=== PATIENT | female | born 1945 | race Caucasian/White ===

== ENCOUNTER 2024-05-17 10:40 | Inpatient (IN) ==
[2024-05-17 11:15] LABS: Basophils # (auto) 0.02 K/uL (0.00-0.20); Basophils % (auto) 0.4 %; Eosinophils # (auto) 0.07 K/uL (0.00-0.50); Eosinophils % (auto) 1.5 %; Hematocrit (blood only) 37.1 % (37.0-47.0); Hemoglobin 13.2 g/dl (12.0-16.0); Immature Granulocytes # (auto) 0.02 K/uL (0.01-0.20); Immature Granulocytes % (auto) 0.4 %; Lymphocytes # (auto) 0.75 K/uL (1.20-3.40); Lymphocytes % (auto) 15.7 %; Mean Corpuscular Hemoglobin 31.5 pg (25.0-34.0); Mean Corpuscular Hgb Conc 35.6 g/dL (32.0-36.0); Mean Corpuscular Volume 88.5 fL (80.0-100.0); Mean Platelet Volume 9.7 fL (9.4-12.4); Monocytes # (auto) 0.43 K/uL (0.11-0.59); Neutrophils # (auto) 3.49 K/uL (1.40-6.50); Platelet Count 202 K/uL (130-400); RDW Coefficient of Variation 13.7 % (11.5-14.5); RDW Standard Deviation 44.1 fL (36.4-46.3); Red Blood Count 4.19 M/uL (4.20-5.40); White Blood Count 4.78 K/ul (4.8-10.8)
--- NOTE | 2024-05-17 11:15 | Emergency Department Note ---
Impression & Plan Acute dyspnea, Acute exacerbation of CHF (congestive heart failure), Elevated brain natriuretic peptide (BNP) level, Pulmonary edema ED Provider Note HISTORY OF PRESENT ILLNESS: Patient is a 78-year-old female presenting with chest tightness and shortness of breath. Patient reports she is from [facility] and is up in the area visiting family. She reports that 10 days ago she had "a heart attack" and had a cardiac catheterization done at her home hospital that was "negative and the arteries were clear." She is not on any aspirin or anticoagulation therapy. She states that she was discharged from the hospital about a week ago and had blood pressure medication adjustments. She states in the last 3 to 4 days since being up in [employer], she has been having increasing shortness of breath. Reports that last night she was unable to sleep secondary to being so short of breath with laying flat. Denies any lower extremity edema. She just complains of chest tightness and feeling like she cannot catch her breath. Denies any DVT or PE history. Denies any cough or fevers. Denies any recent sick contact exposures. She reports has been using her albuterol inhaler with no improvement in her symptoms. Denies any lightheadedness or dizziness. She reports that her chest tightness feels different from when she presented to the outside facility for her heart attack. ROS: as above PHYSICAL EXAM: Constitutional: Patient appears in no acute distress. HENT: Head: Normocephalic and atraumatic. Eyes: EOMI, PERRL Mouth/Throat: Mucous membranes moist. Neck: Trachea midline. Neck supple. Cardiovascular: RRR, No murmurs, rubs or gallops. Intact distal pulses. Pulmonary/Chest: No respiratory distress. Breath sounds equal and clear bilaterally. Patient is conversationally dyspneic. Abdominal: Abdomen soft, no tenderness, rebound or guarding. Musculoskeletal: No edema, tenderness or deformity noted. Skin: Warm and dry. No rash, erythema, pallor or cyanosis Psychiatric: Appropriate mood and affect for situation. Neurological: Alert and keenly responsive. CN II-XII grossly intact, moving all extremities equally and fully. MDM: - Vitals signs stable - History obtained via patient. History as above. - Chronic conditions affecting care: asthma; HTN - Differential diagnoses include, but are not limited to: Congestive heart failure; acute coronary syndrome; COPD/asthma exacerbation; pulmonary edema; pulmonary embolism; pneumonia; pneumothorax; viral syndrome - Order placed for continuous cardiac monitoring. At this time, monitor showed rate of 75 bpm with normal sinus rhythm, per my interpretation. - External medical records reviewed. - EKG interpreted by myself showed normal sinus rhythm. Rate 83 bpm. QT 442. Noted to have T wave inversions in leads II, III and aVF. No previous EKG to compare to. - Laboratory workup interpreted by myself showed leukopenia (WBC 4.78); normal PT/INR; stable electrolytes; normal troponin; normal lipase; elevated BNP (1325) - UA negative for infection - CXR shows some pulmonary vascular congestion, per my interpretation. Radiology notes some subsegmental lateral right lung base opacities concerning for potential pneumonitis versus atelectasis/scarring. - Viral respiratory panel negative - Given patient's recent heart catheterization, CTA chest was obtained. No obvious dissection noted per radiology. However, patient noted to have cardiomegaly with mild interstitial pulmonary edema and trace pleural effusions. Also noted to have esophagitis. - Patient is significantly symptomatic to her heart failure. She is not requiring any oxygen at this point, but she is conversationally dyspneic and unable to lay flat. On review of her discharge summary from her previous hospitalization in [place], she is not discharged on any diuretics. Given 40 mg IV Lasix in the emergency department. Will plan to admit for further cardiac workup, including an echocardiogram. - Discussion was had with caseworker protective services about patient's case and need for admission - Hospitalist, Dr. Baptiste, consulted for admission - [facility] ASSESSMENT AND PLAN: Diagnosis: Acute dyspnea; elevated BNP; pulmonary edema; acute CHF Plan: admit Past Med/Surg History Problem List (Updated 05/17/24 @ 14:17 by Cathleen Antonio MD) Pulmonary edema (Acute) Elevated brain natriuretic peptide (BNP) level (Acute) Acute exacerbation of CHF (congestive heart failure) (Acute) Acute dyspnea (Acute) Abdominal pain (Acute) Diarrhea (Acute) Social History Smoking Status: Never smoker Preferred Language: Chilean Feels Safe at Home: Yes Allergies Allergies Allergy/AdvReac Type Severity Reaction Status Date / Time No Known Allergies Allergy Mild Unverified 05/12/07 16:52 Home Meds Home Medications Medication Instructions Recorded Confirmed ASCORBIC ACID 1,000 mg PO DAILY ##0 05/15/13 BUDESONIDE (INHALATION) (PULMICORT 2 puff inhalation QAM ##0 05/15/13 FLEXHALER) CALCIUM CARBONATE-VITAMIN D 1 tab PO DAILY ##0 05/15/13 (CALCIUM 600+D) CO Q10 1 cap PO DAILY ##0 05/15/13 FLAXSEED (LINSEED) (FLAX SEED OIL) 1 cap PO DAILY ##0 05/15/13 [id number] C-MANGANES 3 tabs PO DAILY ##0 05/15/13 (GLUCOSAMINE MSM COMPLEX) IBUPROFEN (ADVIL) 400 - 600 mg PO PRN Pain or Fever 05/15/13 #0 tabs LOSARTAN POTASSIUM (COZAAR) 100 mg PO DAILY #0 tabs 05/15/13 MONTELUKAST SODIUM (SINGULAIR) 10 mg PO QAM #0 tabs 05/15/13 MULTIPLE VITAMIN (MULTI-VITAMIN) 1 tab PO ##0 05/15/13 OMEGA-3 FATTY ACIDS (FISH OIL) 1 cap PO DAILY ##0 05/15/13 biortin 1 tab PO DAILY ##0 05/15/13 vitamin B12 1 tab PO DAILY ##0 05/15/13 vitamin D3 1 cap PO DAILY ##0 05/15/13 Previous Rx's Medication Instructions Recorded CIPROFLOXACIN HCL (CIPRO) 500 mg PO BID 10 days ##0 05/15/13 Results & Data (ED) Vital Signs Vital Signs - 24 hr 05/17/24 10:45 05/17/24 11:05 05/17/24 11:06 Temperature 36.5 C Temperature Source Temporal Artery Scan Pulse Rate 78 74 Pulse Rate [Apical] Pulse Rhythm Regular Pulse Rhythm [Apical] Pulse Strength [Apical] Respiratory Rate 18 20 Respiratory Effort / Characteristics Respiratory Depth Respiratory Pattern Blood Pressure 109/73 Blood Pressure [Right Arm] Blood Pressure Mean 85 Blood Pressure Mean [Right Arm] Blood Pressure Position [Right Arm] Pulse Oximetry 98 98 97 Oxygen Delivery Method Room Air Room Air Room Air Sepsis Recent Fever Within 48 Hours No Sepsis New/Unexplained Change in Mental Status N/A Sepsis Action Taken by Nursing No Action Required 05/17/24 11:06 05/17/24 12:16 05/17/24 12:27 Temperature 36.8 C Temperature Source Oral Pulse Rate 72 Pulse Rate [Apical] 74 75 Pulse Rhythm Pulse Rhythm [Apical] Regular Pulse Strength [Apical] Normal Respiratory Rate 20 16 Respiratory Effort / Characteristics Non-Labored Spontaneous Respiratory Depth Normal Respiratory Pattern Regular Blood Pressure Blood Pressure [Right Arm] 138/83 154/81 H Blood Pressure Mean Blood Pressure Mean [Right Arm] 101 105 Blood Pressure Position [Right Arm] Lying Pulse Oximetry 97 98 Oxygen Delivery Method Room Air Sepsis Recent Fever Within 48 Hours Sepsis New/Unexplained Change in Mental Status Sepsis Action Taken by Nursing Laboratory Data 05/17/24 10:55 05/17/24 10:55 Lab Results 05/17/24 05/17/24 05/17/24 Range/Units 10:55 11:04 12:14 WBC 4.78 L (4.8-10.8) K/ul RBC 4.19 L (4.20-5.40) M/uL Hgb 13.2 (12.0-16.0) g/dl Hct 37.1 (37.0-47.0) % MCV 88.5 (80.0-100.0) fL MCH 31.5 (25.0-34.0) pg MCHC 35.6 (32.0-36.0) g/dL RDW Std Deviation 44.1 (36.4-46.3) fL RDW Coeff of Braulio 13.7 (11.5-14.5) % Plt Count 202 (130-400) K/uL MPV 9.7 (9.4-12.4) fL Immature Gran % (Auto) 0.4 % Neut % (Auto) 73.0 % Lymph % (Auto) 15.7 % [place] % (Auto) 9.0 % Eos % (Auto) 1.5 % Baso % (Auto) 0.4 % Neut # (Auto) 3.49 (1.40-6.50) K/uL Lymph # (Auto) 0.75 L (1.20-3.40) K/uL [place] # (Auto) 0.43 (0.11-0.59) K/uL Eos # (Auto) 0.07 (0.00-0.50) K/uL Baso # (Auto) 0.02 (0.00-0.20) K/uL Immature Gran # (Auto) 0.02 (0.01-0.20) K/uL PT 11.0 (9.0-12.0) Seconds INR 1.0 (0.9-1.1) Sodium 141 (136-145) mmol/L Potassium 3.7 (3.5-5.1) mmol/L Chloride 107 (98-107) mmol/L Carbon Dioxide 24 (21-32) mmol/L Anion Gap 10 (3-11) BUN 10 (6-23) mg/dl Creatinine 1.01 (0.6-1.2) mg/dl Est Cr Clr Drug Dosing 48.6 ml/min eGFR 57.69 BUN/Creatinine Ratio 9.9 L (10-20) Glucose 121 H (70-99(Fasting)) mg/dl Calcium 9.3 (8.6-10.3) mg/dl Total Bilirubin 1.0 (0.2-1.0) mg/dl AST 18 (13-39) U/L ALT 12 (7-52) U/L Alkaline Phosphatase 49 (34-104) U/L Troponin I High Sens 16.5 H (0-14) pg/ml B-Natriuretic Peptide 1325 H (0-100) pg/ml Total Protein 6.5 (6.0-8.3) gm/dl Albumin 4.1 (3.4-5.0) gm/dl Globulin 2.4 L (2.5-4.0) gm/dl Albumin/Globulin Ratio 1.7 (0.9-2) Lipase 16 (11-82) U/L Urine Color Yellow Urine Appearance Clear (Clear) Urine pH 7.5 (4.5-7.5) Ur Specific [place] 1.006 (1.000-1.030) Urine Protein Negative (Negative) Urine Glucose (UA) Negative (Negative) Urine Ketones Trace H (Negative) Urine Blood Negative (Negative) Urine Nitrite Negative (Negative) Urine Bilirubin Negative (Negative) Urine Urobilinogen Negative (Negative) Ur Leukocyte Esterase Negative (Negative) Adenovirus (PCR) Not Detected (NotDetected) B. pertussis DNA (PCR) Not Detected (NotDetected) B.parapertussis DNA PCR Not Detected (NotDetected) C. pneumoniae DNA (PCR) Not Detected (NotDetected) Coronavirus OC43 (PCR) Not Detected (NotDetected) Coronavirus HKU1 (PCR) Not Detected (NotDetected) Coronavirus 229E (PCR) Not Detected (NotDetected) SARS-CoV-2 (PCR) Not Detected (NotDetected) Coronavirus NL63 (PCR) Not Detected (NotDetected) Human Metapneumovir PCR Not Detected (NotDetected) Influenza Type A (PCR) Not Detected (NotDetected) Influenza Type B (PCR) Not Detected (NotDetected) M. pneumoniae (PCR) Not Detected (NotDetected) Parainfluenza 1 (PCR) Not Detected (NotDetected) Parainfluenza 2 (PCR) Not Detected (NotDetected) Parainfluenza 3 (PCR) Not Detected (NotDetected) Parainfluenza 4 (PCR) Not Detected (NotDetected) RSV (PCR) Not Detected (NotDetected) Entero/Rhino (PCR) Not Detected (NotDetected) Administered Medications Discontinued Medications Furosemide (Furosemide 40 Mg/4 Ml Vial) 40 mg IV ONE ONE Stop: 05/17/24 14:00 Last Admin: 05/17/24 14:16 Dose: 40 mg Documented By: SRIRAM Ioversol (Optiray 320 125ml) 119 ml IV ONCE ONE Stop: 05/17/24 13:07 Last Admin: 05/17/24 13:06 Dose: 119 ml Documented By: CHYNA Imaging Data Radiologist's Impression: Chest X-Ray 05/17/24 10:50 XR chest 1V portable HISTORY: 78 years-old Female Chest pain, nonspecific COMPARISON: 05/15/2013 TECHNIQUE: AP view the chest FINDINGS: Cardiac silhouette is upper limits of normal in size. No pneumothorax, pleural effusion, or overt pulmonary edema. There is mild subsegmental lateral right lung base opacities. Surgical clips project over the right axilla. Bones appear grossly intact. IMPRESSION: Mild subsegmental lateral right lung base opacities may represent a mild pneumonitis versus atelectasis/scarring. ACT 112: Negative or not required by law. The above report was generated using voice recognition software. It may contain grammatical, syntax or spelling errors. Electronically signed by: Orville Alejandro M.D. 05/17/2024 11:18 AM Chest CTA 05/17/24 12:48 CT angio chest dissec wo/w con CT DOSE: 1337.74 mGy.cm HISTORY: 78 years-old Female with shortness of breath; recent cath; headache. Acute shortness of breath with recent cardiac catheterization TECHNIQUE: Multiple CTA images of the chest were obtained before and after the intravenous administration of 119 ml Optiray. Coronal and sagittal MIPS were obtained from the axial data set and were submitted for review. All measurements were obtained according to NASCET criteria. A dose lowering technique was utilized adhering to the principles of ALARA. COMPARISON: Chest radiograph of same day. FINDINGS: CTA: Mild cardiomegaly without pericardial effusion. No thoracic aortic aneurysm, dissection or intramural hematoma. Great vessels appear intact. There is descending thoracic aortic tortuosity. Mild atherosclerosis. No pulmonary emboli identified. CT CHEST: Unremarkable thyroid. There are a few borderline enlarged mediastinal lymph nodes measuring up to 10 mm. There is circumferential wall thickening involving the mid to distal esophagus with adjacent periesophageal inflammatory stranding. Small hiatal hernia. Possible postoperative changes of the proximal stomach. Trace pleural effusions. No pneumothorax. Mild intralobular septal thickening with bibasilar subsegmental atelectasis. No definitively suspicious pulmonary nodules or masses. Central airways appear patent. Probable cyst of the right hepatic lobe on image 52 series 5 measuring 1.4 cm. Biopsied and partially calcified lesions of the right breast with right axillary surgical clips. Probable small seroma associated with the lesion on image 139 measuring 8 mm. No acute fracture or suspicious bone lesion. IMPRESSION: 1. Cardiomegaly with mild interstitial pulmonary edema, trace pleural effusions with mild subsegmental bibasilar atelectasis. 2. No acute aortic pathology or pulmonary embolus. 3. Mid to distal esophageal wall thickening with adjacent periesophageal inflammation/trace fluid suggestive of esophagitis. Findings could be correlated with endoscopy. 4. Borderline enlarged mediastinal lymph nodes, likely reactive. ACT 112: Negative or not required by law. The above report was generated using voice recognition software. It may contain grammatical, syntax or spelling errors. Electronically signed by: Orville Alejandro M.D. 05/17/2024 1:56 PM Discharge Plan Visit Data Chief Complaint: Cardiac Assessment Stated Complaint: CHEST TIGHT, SOB, RECENT HEART ATTACK ED Provider: Cathleen Antonio Discharge Problem: Acute dyspnea, Acute exacerbation of CHF (congestive heart failure), Elevated brain natriuretic peptide (BNP) level, Pulmonary edema Forms Stand Alone Forms: My [facility] Prescriptions Prescriptions: No Action ASCORBIC ACID 1,000 MG tablet 1,000 mg PO DAILY Qty: 0 BUDESONIDE (INHALATION) (PULMICORT FLEXHALER) 180 MCG/ACT inhaler 2 puff Inhalation QAM Qty: 0 CALCIUM CARBONATE-VITAMIN D (CALCIUM 600+D) 1 TAB tablet 1 tab PO DAILY Qty: 0 CO Q10 1 cap PO DAILY Qty: 0 FLAXSEED (LINSEED) (FLAX SEED OIL) 1 CAP capsule 1 cap PO DAILY Qty: 0 [id number] C-MANGANES (GLUCOSAMINE MSM COMPLEX) 1 TAB tablet 3 tabs PO DAILY Qty: 0 IBUPROFEN (ADVIL) 200 MG tablet 400 - 600 mg PO PRN (Reason: Pain or Fever) Qty: 0 LOSARTAN POTASSIUM (COZAAR) 100 MG tablet 100 mg PO DAILY Qty: 0 MONTELUKAST SODIUM (SINGULAIR) 10 MG tablet 10 mg PO QAM Qty: 0 MULTIPLE VITAMIN (MULTI-VITAMIN) 1 TAB tablet 1 tab PO Qty: 0 OMEGA-3 FATTY ACIDS (FISH OIL) 1 CAP capsule 1 cap PO DAILY Qty: 0 biortin 1 tab PO DAILY Qty: 0 vitamin B12 1 tab PO DAILY Qty: 0 vitamin D3 1 cap PO DAILY Qty: 0 CIPROFLOXACIN HCL (CIPRO) 500 MG tablet 500 mg PO BID 10 Days Qty: 0 0RF Referrals Referrals: PCP,NO [Physician] -
--- NOTE | 2024-05-17 11:19 | XRay Report ---
XR chest 1V portable HISTORY: 78 years-old Female Chest pain, nonspecific COMPARISON: 05/15/2013 TECHNIQUE: AP view the chest FINDINGS: Cardiac silhouette is upper limits of normal in size. No pneumothorax, pleural effusion, or overt pul monary edema. There is mild subsegmental lateral right lung base opacities. Surgical clips project ov er the right axilla. Bones appear grossly intact. IMPRESSION: Mild subsegmental lateral right lung base opacities may represent a mild pneumonitis vers us atelectasis/scarring. ACT 112: Negative or not required by law. The above report was generated using voice recognition software. It may contain grammatical, syntax o r spelling errors. Electronically signed by: Orville Alejandro M.D. 05/17/2024 11:18 AM
[2024-05-17 11:29] LABS: Albumin Globulin Ratio 1.7 (0.9-2); Albumin Level 4.1 gm/dl (3.4-5.0); BUN Creatinine Ratio 9.9 (10-20); Calcium 9.3 mg/dl (8.6-10.3); Creatinine Clr Calc Pharmacy 48.6 ml/min; Globulin 2.4 gm/dl (2.5-4.0); Potassium 3.7 mmol/L (3.5-5.1); Total Protein 6.5 gm/dl (6.0-8.3)
[2024-05-17 11:35] LABS: Troponin I High Sensitivity 16.5 pg/ml (0-14)
[2024-05-17 12:10] LABS: Adenovirus PCR Not Detected (NotDetected); Bordetella parapertussis PCR Not Detected (NotDetected); Bordetella pertussis PCR Not Detected (NotDetected); Chlamydia pneumoniae PCR Not Detected (NotDetected); Coronavirus 229E PCR Not Detected (NotDetected); Coronavirus CoV-2 (COVID19)PCR Not Detected (NotDetected); Coronavirus HKU1 PCR Not Detected (NotDetected); Coronavirus NL63 PCR Not Detected (NotDetected); Coronavirus OC43PCR Not Detected (NotDetected); Human Metapneumovirus PCR Not Detected (NotDetected); Influenza A PCR Not Detected (NotDetected); Influenza B PCR Not Detected (NotDetected); Mycoplasma pneumoniae PCR Not Detected (NotDetected); Parainfluenza Virus 1 PCR Not Detected (NotDetected); Parainfluenza Virus 2 PCR Not Detected (NotDetected); Parainfluenza Virus 3 PCR Not Detected (NotDetected); Parainfluenza Virus 4 PCR Not Detected (NotDetected); Respiratory Syncytial VirusPCR Not Detected (NotDetected); Rhinovirus/Enterovirus PCR Not Detected (NotDetected)
[2024-05-17 12:47] LABS: Appearance Urine Clear (Clear); Bilirubin Urine Negative (Negative); Blood Urine Negative (Negative); Color Urine Yellow; Glucose Urine UA Negative (Negative); Ketones Urine Trace (Negative); Leukocyte Esterase Urine Negative (Negative); Nitrite Urine Negative (Negative); Protein Urine Negative (Negative); Specific Gravity Urine 1.006 (1.000-1.030); Urobilinogen Urine Negative (Negative); pH Urine 7.5 (4.5-7.5)
--- NOTE | 2024-05-17 12:48 | Electrocardiogram Report ---
Test Reason : Blood Pressure : */* mmHG Vent. Rate : 83 BPM Atrial Rate : 83 BPM P-R Int : 168 ms QRS Dur : 94 ms QT Int : 442 ms P-R-T Axes : 56 -67 257 degrees QTcB Int : 519 ms Normal sinus rhythm Left axis deviation Marked T-wave abnormality, consider inferolateral ischemia Prolonged QT Abnormal ECG No previous ECGs available Confirmed by Tone Conte ([id number]) on 05/17/2024 12:48:09 PM Referred By: REFERRED SELF Confirmed By: Tone Conte
[2024-05-17] MEDS: OPTIRAY 320 125ml IV ONE (13:06)
--- NOTE | 2024-05-17 13:58 | CT Scan Report ---
CT angio chest dissec wo/w con CT DOSE: 1337.74 mGy.cm HISTORY: 78 years-old Female with shortness of breath; recent cath; headache. Acute shortness of br eath with recent cardiac catheterization TECHNIQUE: Multiple CTA images of the chest were obtained before and after the intravenous administra tion of 119 ml Optiray. Coronal and sagittal MIPS were obtained from the axial data set and were sub mitted for review. All measurements were obtained according to NASCET criteria. A dose lowering tech nique was utilized adhering to the principles of ALARA. COMPARISON: Chest radiograph of same day. FINDINGS: CTA: Mild cardiomegaly without pericardial effusion. No thoracic aortic aneurysm, dissection or intramural hematoma. Great vessels appear intact. There is descending thoracic aortic tortuosity. Mild atherosc lerosis. No pulmonary emboli identified. CT CHEST: Unremarkable thyroid. There are a few borderline enlarged mediastinal lymph nodes measuring up to 10 mm. There is circumferential wall thickening involving the mid to distal esophagus with adjacent dilma esophageal inflammatory stranding. Small hiatal hernia. Possible postoperative changes of the proxima l stomach. Trace pleural effusions. No pneumothorax. Mild intralobular septal thickening with bibasilar subsegme ntal atelectasis. No definitively suspicious pulmonary nodules or masses. Central airways appear kaur nt. Probable cyst of the right hepatic lobe on image 52 series 5 measuring 1.4 cm. Biopsied and parti ally calcified lesions of the right breast with right axillary surgical clips. Probable small seroma associated with the lesion on image 139 measuring 8 mm. No acute fracture or suspicious bone lesion. IMPRESSION: 1. Cardiomegaly with mild interstitial pulmonary edema, trace pleural effusions with mild subsegmenta l bibasilar atelectasis. 2. No acute aortic pathology or pulmonary embolus. 3. Mid to distal esophageal wall thickening with adjacent periesophageal inflammation/trace fluid sug gestive of esophagitis. Findings could be correlated with endoscopy. 4. Borderline enlarged mediastinal lymph nodes, likely reactive. ACT 112: Negative or not required by law. The above report was generated using voice recognition software. It may contain grammatical, syntax o r spelling errors. Electronically signed by: Orville Alejandro M.D. 05/17/2024 1:56 PM
[2024-05-17] MEDS: FUROSEMIDE 40 MG/4 ML VIAL IV ONE (14:16)
--- NOTE | 2024-05-17 15:23 | History & Physical Report ---
Date of Service May 17, 2024 Assessment & Plan (1) Pulmonary edema: (2) Takotsubo cardiomyopathy: Plan: Patient is a 78 year old female with recent diagnosis of Takatsubo Cardiomyopathy with NSTEMI, history of Asthma, Pancreatic insufficiency, Breast Cancer s/p radiation, other problems noted below presenting with shortness of breath x 3-4 days. PULMONARY EDEMA TAKOTSUBO CARDIOMYOPATHY, RECENT DIAGNOSIS recently discharged from [facility] in [place] last May 09, 2024 after presenting with chest tightness and was diagnosed with Takatsubo Cardiomyopathy and NSTEMI. She was given Lasix and was discharged on Metoprolol XL and Valsartan. Cardiac Cath: negative for coronary artery disease as per patient presenting with shortness of breath with exertion, while supine no chest pain BNP elevated 1,300s Trop 16 EKG T wave depressions inferior and anteroseptal leads repeat Trop pending echocardiogram ordered continue Lasix 40mg IV daily continue recently prescribed Metoprolol XL 25mg daily, Valsartan 40mg po daily obtain records from [facility] including ekg, echo, cardiology notes Cardiology service consulted PROLONGED QTC QTc 519 repeat EKG in AM ASTHMA not in exacerbation continue Arnuity Ellipta, Montelukast PANCREATIC INSUFFICIENCY continue Zenpep with meals MIGRAINE continue PRN Sumatriptan, Celebrex ALCOHOL USE patient reports having 2-3 drinks of wine or cocktail/day HISTORY OF BREATH CANCER S/P RADIATION 2018 DVT PROPHYLAXIS SCDs for now FULL CODE PER PATIENT DISPOSITION lives at home in [place], visiting [place] currently History of Present Illness Chief Complaint: shortness of breath x 3-4 days Primary Care Provider: MARZENA WINTER Patient is a 78 year old female with recent diagnosis of Takotsubo Cardiomyopathy with NSTEMI, history of Asthma, Pancreatic insufficiency, Breast Cancer s/p radiation, other problems noted below presenting with shortness of breath x 3-4 days. Patient is visiting [place] from [place]. She was recently discharged from [facility] in [place] last May 09, 2024 after presenting with chest tightness and was diagnosed with Takatsubo Cardiomyopathy and NSTEMI. She was given Lasix and was discharged on Metoprolol XL and Valsartan. Cardiac Cath: negative for coronary artery disease as per patient For the past 3-4 days, patient reports progressive shortness of breath even with mild exertion and with laying flat. At the ER, patient received with essentially stable vital signs, >90% on room air. BNP elevated at [address] chest: no acute PE 1. Cardiomegaly with mild interstitial pulmonary edema, trace pleural effusions with mild subsegmental bibasilar atelectasis. 2. No acute aortic pathology or pulmonary embolus. 3. Mid to distal esophageal wall thickening with adjacent periesophageal inflammation/trace fluid suggestive of esophagitis. Findings could be correlated with endoscopy. 4. Borderline enlarged mediastinal lymph nodes, likely reactive. Patient was given Lasix 40mg IV at the ER. On exam, patient seen resting in bed, sitting up, not in distress, speaks in sentences with no effort. She still has some shortness of breath, occasional dry cough, but denies chest pain, palpitations, dizziness or any other symptoms. Allergies Allergy/AdvReac Type Severity Reaction Status Date / Time animal dander Allergy Severe Causes Unverified 05/17/24 14:33 asthma attack amlodipine Allergy Unknown "Just Unverified 05/17/24 14:33 doesn't agree with me." diltiazem Allergy Unknown "Just Unverified 05/17/24 14:33 doesn't agree with me." fluconazole Allergy Unknown "Just Unverified 05/17/24 14:33 doesn't agree with me." gabapentin Allergy Unknown "Just Unverified 05/17/24 14:33 doesn't agree with me." nebivolol [From Bystolic] Allergy Unknown "Just Unverified 05/17/24 14:33 doesn't agree with me." oxycodone Allergy Unknown "Just Unverified 05/17/24 14:33 doesn't agree with me." tramadol [From Ultram] Allergy Unknown "Just Unverified 05/17/24 14:33 doesn't agree with me." Home Medications Medication Instructions Recorded Confirmed Type ascorbic acid (vitamin C) 1,000 mg 1,000 mg PO QDL ##0 05/15/13 05/17/24 History tablet biotin 1,000 mcg chewable tablet 1,000 mcg PO QDL ##0 05/15/13 05/17/24 History calcium 600 mg (as 1 tab PO QDL ##0 05/15/13 05/17/24 History carbonate)-vitamin D3 10 mcg (400 unit) tablet (Calcium 600 + D(3)) cholecalciferol (vitamin D3) 25 25 mcg PO QDL ##0 05/15/13 05/17/24 History mcg (1,000 unit) tablet (Vitamin D3) coQ10 (ubiquinol) 100 mg capsule 100 mg PO QDL ##0 05/15/13 05/17/24 History cyanocobalamin (vitamin B-12) 1,000 mcg PO QDL ##0 05/15/13 05/17/24 History 1,000 mcg tablet (Vitamin B-12) flaxseed oil 1,000 mg capsule 1,000 mg PO QDL ##0 05/15/13 05/17/24 History qypooixjlwl-igj-emcyfigiy-vitC 3 tabs PO QDL ##0 05/15/13 05/17/24 History capsule (Glucosamine Complex-MSM capsule) ibuprofen 200 mg tablet 400 - 600 mg PO DAILY PRN Pain #0 05/15/13 05/17/24 History tabs multivitamin 1 tab PO QDL ##0 05/15/13 05/17/24 History omega 0-dwg-ywz-fish oil 900 1 cap PO QDL ##0 05/15/13 05/17/24 History mg-1,400 mg capsule,delayed release atorvastatin 10 mg tablet 10 mg PO QAM 05/17/24 05/17/24 History fluticasone furoate 50 1 inh inhalation QAM 05/17/24 05/17/24 History mcg/actuation blister powder for inhalation (Arnuity Ellipta) hydroxyzine HCl 25 mg tablet 25 mg PO BID 05/17/24 05/17/24 History uavlny-bzthdbnf-ivvibpo 1 - 3 cap PO UD 05/17/24 05/17/24 History 40,000-126,000-168,000 unit capsule, delay rel (Zenpep) metoprolol succinate 25 mg 25 mg PO QPM 05/17/24 05/17/24 History tablet,extended release 24 hr montelukast 10 mg tablet 10 mg PO QAM 05/17/24 05/17/24 History sumatriptan succinate 50 mg tablet 50 mg PO DAILY PRN Migraine 05/17/24 05/17/24 History Headache trazodone 50 mg tablet 50 mg PO HS 05/17/24 05/17/24 History valsartan 40 mg tablet 40 mg PO QPM 05/17/24 05/17/24 History Past Med/Surg History Problem List (Updated 05/17/24 @ 15:06 by Torito Baptiste MD) Takotsubo cardiomyopathy Pulmonary edema (Acute) Elevated brain natriuretic peptide (BNP) level (Acute) Acute exacerbation of CHF (congestive heart failure) (Acute) Acute dyspnea (Acute) Abdominal pain (Acute) Diarrhea (Acute) Social History Smoking Status: Former smoker Second Hand Exposure: No; Do You Dip or Chew Tobacco: No; Tobacco Cessation Education Requested by Patient: No Hx Alcohol Use: Yes Alcohol type: wine Hx Substance Use: No Preferred Language: Cook Islander Communication Ability: Effective Seam Feller Required: No Beliefs That Will Affect Care: None Current Living Situation: Alone Other Information That Helps Us Care for You: No Feels Safe at Home: Yes Safety Concerns: Feels Safe At This Time Assistive Devices: None Review of Systems Review of Systems: all noted and negative except for above Physical Exam Physical Exam: General- oriented x 3, not in distress, speaks in sentences with no effort or accessory muscle use Head- atraumatic Eyes- PERRL, EOMI, anicteric ENT- oropharynx clear Neck- supple, (+) JVD, no adenopathy, no thyromegaly; carotids +2/2, no bruits appreciated Lungs- mild rales at the bases no wheezing Heart- normal rate, regular rhythm; no murmur, no gallop, no rub appreciated Abdomen- normal bowel sounds, nondistended, soft, nontender, no masses or hepatosplenomegaly Extremities- trace pretibial edema, no calf tenderness; peripheral pulses intact Neuro- alert, oriented x 3; CN 2-12 grossly intact; motor 5/5 bilaterally;sensation 100% on all extremities; no other gross focal neurologic deficits Skin- warm & dry Results & Data Results & Data Vital Signs (Past 12 Hours) Vital Signs Temp Pulse Pulse Resp BP BP Pulse Ox 05/17/24 14:33 36.7 C 88 20 158/88 H 98 05/17/24 12:27 75 16 154/81 H 98 05/17/24 12:16 72 05/17/24 11:06 36.8 C 74 20 138/83 97 05/17/24 11:06 97 05/17/24 11:05 74 20 98 05/17/24 10:45 36.5 C 78 18 109/73 98 O2 Del Method 05/17/24 14:33 Room Air 05/17/24 12:27 05/17/24 12:16 05/17/24 11:06 Room Air 05/17/24 11:06 Room Air 05/17/24 11:05 Room Air 05/17/24 10:45 Room Air all noted and reviewed including below Code Status & VTE Plan VTE Prophylaxis Plan VTE Prophylaxis will be ordered: Yes
[2024-05-17] MEDS ORDERED: PANCREAZE (LIPASE 16,800U) CAP PO PRN (15:36)
[2024-05-17] MEDS ORDERED: ACETAMINOPHEN 325 MG TAB PO PRN (16:26)
[2024-05-17] MEDS: PANCREAZE (LIPASE 16,800U) CAP PO SCH (16:51)
[2024-05-17 16:59] LABS: Magnesium 1.7 mg/dl (1.7-2.4)
[2024-05-17 17:00] LABS: Troponin I High Sensitivity 29.7 pg/ml (0-14)
[2024-05-17] MEDS: NITROGLYCERIN SL 0.4 MG/TAB TAB SL PRN (20:40)
[2024-05-17] MEDS: FAMOTIDINE 20MG IV PUSH 20 MG/5 ML SYR IV STA (20:42)
[2024-05-17] MEDS: MAGNESIUM SULFATE / D5W 1 GM/100 ML BAG IV SCH (20:51)
[2024-05-17] MEDS: ASPIRIN 81 MG CHEW PO STA (20:58)
[2024-05-17] MEDS: MoRPHine SULFATE 2 MG/ML CARP IV STA (20:58)
[2024-05-17] MEDS: VALSARTAN 80 MG TAB PO SCH (21:50)
[2024-05-17] MEDS: hydrOXYzine HCl 25 MG TAB PO SCH (21:53)
[2024-05-17] MEDS: METOPROLOL SUCC 25MG EXT REL TAB PO SCH (21:54)
[2024-05-17] MEDS: traZODone HCL 50 MG TAB PO SCH (21:55)
[2024-05-18 07:20] LABS: Basophils # (auto) 0.03 K/uL (0.00-0.20); Basophils % (auto) 0.8 %; Eosinophils # (auto) 0.16 K/uL (0.00-0.50); Eosinophils % (auto) 4.1 %; Hemoglobin 12.3 g/dl (12.0-16.0); Immature Granulocytes # (auto) 0.02 K/uL (0.01-0.20); Immature Granulocytes % (auto) 0.5 %; Lymphocytes # (auto) 0.85 K/uL (1.20-3.40); Mean Corpuscular Hemoglobin 30.8 pg (25.0-34.0); Mean Corpuscular Hgb Conc 34.2 g/dL (32.0-36.0); Mean Corpuscular Volume 90.2 fL (80.0-100.0); Mean Platelet Volume 9.9 fL (9.4-12.4); Monocytes # (auto) 0.51 K/uL (0.11-0.59); Monocytes % (auto) 13.2 %; Neutrophils % (auto) 59.4 %; Platelet Count 181 K/uL (130-400); RDW Coefficient of Variation 13.8 % (11.5-14.5); RDW Standard Deviation 45.3 fL (36.4-46.3); Red Blood Count 3.99 M/uL (4.20-5.40); White Blood Count 3.87 K/ul (4.8-10.8)
[2024-05-18 07:38] LABS: Albumin Globulin Ratio 1.5 (0.9-2); Albumin Level 3.5 gm/dl (3.4-5.0); BUN Creatinine Ratio 11.7 (10-20); Bilirubin,Total 0.8 mg/dl (0.2-1.0); Calcium 8.7 mg/dl (8.6-10.3); Creatinine Clr Calc Pharmacy 44.3 ml/min; Globulin 2.4 gm/dl (2.5-4.0); Magnesium 2.3 mg/dl (1.7-2.4); Potassium 3.5 mmol/L (3.5-5.1); Total Protein 5.9 gm/dl (6.0-8.3)
[2024-05-18 07:45] LABS: Troponin I High Sensitivity 17.9 pg/ml (0-14)
[2024-05-18] MEDS: ATORVASTATIN 10 MG TAB PO SCH (08:24)
[2024-05-18] MEDS: FLUTICASONE FUROATE 100MCG 14 PUFFS/INHALER INH SCH (08:24)
[2024-05-18] MEDS: FAMOTIDINE 20MG IV PUSH 20 MG/5 ML SYR IV SCH (08:24)
[2024-05-18] MEDS: FUROSEMIDE 40 MG/4 ML VIAL IV SCH (08:24)
[2024-05-18] MEDS: MONTELUKAST SODIUM 10 MG TABLET PO SCH (08:24)
--- NOTE | 2024-05-18 10:13 | Cardiology Consultation ---
Date of Consultation May 18, 2024 Assessment & Plan (1) Heart failure, systolic, with acute decompensation: (2) Takotsubo cardiomyopathy: (3) Pulmonary edema: (4) Elevated brain natriuretic peptide (BNP) level: (5) Acute exacerbation of CHF (congestive heart failure): (6) Chronic alcohol use: (7) HTN (hypertension): Plan 78-year-old female presenting to [facility] on May 17, 2024 with signs and symptoms of acute decompensated systolic congestive heart failure following recent hospitalization in [place] with stress induced cardiomyopathy, Takotsubo cardiomyopathy. Diagnostic cardiac catheterization in [place] reportedly with normal coronary arteries (no records available for review). Degree of initial systolic dysfunction unknown though resting echocardiography this admission reveals moderate reduction in LV systolic function, EF 40 to 45%, findings consistent with apical ballooning cardiomyopathy history. Symptoms on presentation, acute decompensated systolic heart failure, HFrEF, have significantly improved following administration of two dose of 40 mg IV furosemide. Recommendations: Continue metoprolol succinate 25 mg/day Continue valsartan 40 mg/day Add oral furosemide 20 mg/day Add spironolactone, 12.5 mg/day Avoid QTc prolonging medications Aspiration evaluation/precautions Outpatient follow-up with cardiology and family practitioner in [place] Supervising Physician Co-Signing Physician Notes Patient seen and personally examined. Care and management discussed in detail with advanced provider and recommendations as above personally endorsed. 78-year-old female with recent hospital discharge following presentation with severe throat and chest pain with findings consistent with a apical ballooning cardiomyopathy per report diagnostic coronary angiography free of disease. Patient presents now with signs and symptoms of mildly decompensated systolic heart failure. Echocardiogram consistent with referral diagnosis. Substanti ally improved after initial diuresis. Recommendations as noted above History of Present Illness Reason for Consultation: Volume overload, Takotsubo cardiomyopathy Requesting Physician: [facility], Dr. Baptiste Attending Physician: [facility], Dr. Awilda Belcher MD History of Present Illness Josefina Carrero is a very pleasant 78-year-old female who was in her usual state of health until the evening of May 06, 2024 at which time, while eating dinner, she felt a discomfort in her neck as though the food did not go down correctly. She notes taking sips of water to try to ease things along, thereafter developing pain across the upper chest associated with shortness of breath. She notes laying down on the couch for a while with eventual improvement. Shortly after 8 PM she went to the bathroom and felt okay however in the middle the night she woke with shortness of breath and recurrent upper chest discomfort. She notes driving herself to the ER where she underwent a thorough evaluation and was told that she had a "stress related heart incident." She describes undergoing diagnostic cardiac catheterization via right radial artery approach, without coronary artery disease observed. She is unaware of resting echocardiography findings at that time, unaware of the degree of LV systolic dysfunction. Patient discharge from [facility] on May 09, 2024 on metoprolol succinate 25 mg/day and valsartan 40 mg/day. She was not discharged on diuretic therapy. Follow-up appointments are scheduled with her family provider and cardiology on May 21 and . The patient is in [facility] visiting family/friends for the holiday's. She notes family ties to this community x 60 to 70 years. For the past 4 days the patient has experienced recurrent tightness, squeezing, and shortness of breath along with orthopnea, intermittent PND, and mild lower extremity peripheral edema. Patient presented to the [facility] ER May 17, 2024 for further evaluation and treatment. Chest x-ray was interpreted by the radiologist as revealing mild subsegmental lateral right lung base opacities. Chest CTA revealed cardiomegaly with mild interstitial pulmonary edema, trace pleural effusions with mild subsegmental bibasilar atelectasis. CT negative for PE. Mid to distal esophageal wall thickening observed with adjacent periesophageal inflammation/trace fluid suggestive of esophagitis and a small hiatal hernia. Mediastinal lymph nodes were borderline enlarged, felt to be reactive. Patient received 40 mg IV furosemide in the ER and a second dose of 40 mg IV furosemide approximately 1 hour prior to my evaluation this morning with resultant significant improvement in presenting symptoms. She described at least 90% improvement in presenting symptoms. Past Medical and Surgical History Stress mediated cardiomyopathy, Takotsubo cardiomyopathy, April 2024 Hypertension Asthma Chronic pancreatic insufficiency Right breast cancer x 2, status post radiation, lumpectomy x 2 Insomnia, on Lunesta Tonsillectomy Tubal ligation Family History: Positive for CAD and CHF in father. Mother without cardiac issues. Brother with CAD. Social History: Remote tobacco user, in college. Alcohol: 2 healthy glasses of wine per day, and an occasional cocktail. No illegal drug use. Lives in [place], [place]. Retired in 2013, computer company executive, desk job. [employer] graduate. Allergies Allergy/AdvReac Type Severity Reaction Status Date / Time animal dander Allergy Severe Causes Unverified 05/17/24 14:33 asthma attack amlodipine Allergy Unknown "Just Unverified 05/17/24 14:33 doesn't agree with me." diltiazem Allergy Unknown "Just Unverified 05/17/24 14:33 doesn't agree with me." fluconazole Allergy Unknown "Just Unverified 05/17/24 14:33 doesn't agree with me." gabapentin Allergy Unknown "Just Unverified 05/17/24 14:33 doesn't agree with me." nebivolol [From Bystolic] Allergy Unknown "Just Unverified 05/17/24 14:33 doesn't agree with me." oxycodone Allergy Unknown "Just Unverified 05/17/24 14:33 doesn't agree with me." tramadol [From Ultram] Allergy Unknown "Just Unverified 05/17/24 14:33 doesn't agree with me." Home Medications Medication Instructions Recorded Confirmed Type ascorbic acid (vitamin C) 1,000 mg 1,000 mg PO QDL ##0 05/15/13 05/17/24 History tablet biotin 1,000 mcg chewable tablet 1,000 mcg PO QDL ##0 05/15/13 05/17/24 History calcium 600 mg (as 1 tab PO QDL ##0 05/15/13 05/17/24 History carbonate)-vitamin D3 10 mcg (400 unit) tablet (Calcium 600 + D(3)) cholecalciferol (vitamin D3) 25 25 mcg PO QDL ##0 05/15/13 05/17/24 History mcg (1,000 unit) tablet (Vitamin D3) coQ10 (ubiquinol) 100 mg capsule 100 mg PO QDL ##0 05/15/13 05/17/24 History cyanocobalamin (vitamin B-12) 1,000 mcg PO QDL ##0 05/15/13 05/17/24 History 1,000 mcg tablet (Vitamin B-12) flaxseed oil 1,000 mg capsule 1,000 mg PO QDL ##0 05/15/13 05/17/24 History cmzzryywggb-ymh-ztqhmsocj-vitC 3 tabs PO QDL ##0 05/15/13 05/17/24 History capsule (Glucosamine Complex-MSM capsule) ibuprofen 200 mg tablet 400 - 600 mg PO DAILY PRN Pain #0 05/15/13 05/17/24 History tabs multivitamin 1 tab PO QDL ##0 05/15/13 05/17/24 History omega 9-ylw-jzr-fish oil 900 1 cap PO QDL ##0 05/15/13 05/17/24 History mg-1,400 mg capsule,delayed release atorvastatin 10 mg tablet 10 mg PO QAM 05/17/24 05/17/24 History fluticasone furoate 50 1 inh inhalation QAM 05/17/24 05/17/24 History mcg/actuation blister powder for inhalation (Arnuity Ellipta) hydroxyzine HCl 25 mg tablet 25 mg PO BID 05/17/24 05/17/24 History aqhero-qpxenxdq-okbjimm 1 - 3 cap PO UD 05/17/24 05/17/24 History 40,000-126,000-168,000 unit capsule, delay rel (Zenpep) metoprolol succinate 25 mg 25 mg PO QPM 05/17/24 05/17/24 History tablet,extended release 24 hr montelukast 10 mg tablet 10 mg PO QAM 05/17/24 05/17/24 History sumatriptan succinate 50 mg tablet 50 mg PO DAILY PRN Migraine 05/17/24 05/17/24 History Headache trazodone 50 mg tablet 50 mg PO HS 05/17/24 05/17/24 History valsartan 40 mg tablet 40 mg PO QPM 05/17/24 05/17/24 History Patient History Social History Smoking Status: Former smoker Second Hand Exposure: No; Do You Dip or Chew Tobacco: No; Tobacco Cessation Education Requested by Patient: No Hx Alcohol Use: Yes Alcohol type: wine Hx Substance Use: No Preferred Language: Yakut Communication Ability: Effective Senior Network Engineer Required: No Beliefs That Will Affect Care: None Current Living Situation: Alone Other Information That Helps Us Care for You: No Feels Safe at Home: Yes Safety Concerns: Feels Safe At This Time Assistive Devices: None Review of Systems Review of Systems: Complete Review of Systems: Constitutional: No fevers, chills, or night sweats. Notes taking multiple supplements. HEENT: No history of amaurosis fugax. Pulmonary: Asthma. No history of sleep apnea. No history of PE. Cardiac: See above. GI/Abd: Dysphagia. GERD. Constipation requiring laxative use. No melena or hematochezia. Vascular: No history of carotid artery disease, AAA, or lower extremity claudication/PAD. Hematologic: No coagulation disorder, anemia, or abnormal bleeding. Musculoskeletal: Arthritis. Skin: No rash. Neurologic: No history of TIA/CVA. No history of seizure disorder. Female : Breast cancer. Endocrine: Denies diabetes mellitus. Complete Review of Systems is as stated above, negative, or noncontributory Physical Exam Physical Exam: General: A&Ox3. NAD. HENT: Normocephalic. Atraumatic. Eyes: PER. Conjunctiva pink, sclera clear. Neck: JVD. Heart: RRR. Systolic murmur at the lower left sternal border. PMI is nondisplaced. Lungs: Clear to auscultation. Abdomen: +BS. Soft. Nontender. No masses or organomegaly. Extremities: No significant edema. No clubbing. No cyanosis Limited neurological examination is without focal deficits. Pulses: Right radial access site looks good. Posterior tibial=2/4. Results & Data Vital Signs (Past 12 Hours) Vital Signs Temp Pulse Resp BP Pulse Ox O2 Del Method 05/18/24 09:41 Room Air 05/18/24 07:26 36.6 C 59 L 17 112/66 97 Room Air 05/18/24 03:47 36.6 C 53 L 18 100/64 95 Room Air 05/17/24 22:53 36.6 C 63 18 96/60 L 95 Room Air Laboratory Results Cardiac Enzymes 05/17/24 05/17/24 05/17/24 Range/Units 10:55 16:17 20:15 AST 18 (13-39) U/L Troponin I High Sens 16.5 H 29.7 H D 38.8 H (0-14) pg/ml B-Natriuretic Peptide 1325 H (0-100) pg/ml 05/17/24 05/18/24 Range/Units 22:45 06:42 AST 14 (13-39) U/L Troponin I High Sens 31.1 H 17.9 H D (0-14) pg/ml B-Natriuretic Peptide (0-100) pg/ml Coagulation 05/17/24 Range/Units 10:55 PT 11.0 (9.0-12.0) Seconds B-Natriuretic Peptide 1325 H (0-100) pg/ml CBC 05/17/24 05/18/24 Range/Units 10:55 06:42 WBC 4.78 L 3.87 L (4.8-10.8) K/ul RBC 4.19 L 3.99 L (4.20-5.40) M/uL Hgb 13.2 12.3 (12.0-16.0) g/dl Hct 37.1 36.0 L (37.0-47.0) % Plt Count 202 181 (130-400) K/uL Neut # (Auto) 3.49 2.30 (1.40-6.50) K/uL Lymph # (Auto) 0.75 L 0.85 L (1.20-3.40) K/uL [place] # (Auto) 0.43 0.51 (0.11-0.59) K/uL Eos # (Auto) 0.07 0.16 (0.00-0.50) K/uL Baso # (Auto) 0.02 0.03 (0.00-0.20) K/uL Comprehensive Metabolic Panel 05/17/24 05/18/24 Range/Units 10:55 06:42 Sodium 141 142 (136-145) mmol/L Potassium 3.7 3.5 (3.5-5.1) mmol/L Chloride 107 106 (98-107) mmol/L Carbon Dioxide 24 30 (21-32) mmol/L BUN 10 13 (6-23) mg/dl Creatinine 1.01 1.11 (0.6-1.2) mg/dl Glucose 121 H 91 (70-99(Fasting)) mg/dl Calcium 9.3 8.7 (8.6-10.3) mg/dl AST 18 14 (13-39) U/L ALT 12 10 (7-52) U/L Alkaline Phosphatase 49 42 (34-104) U/L Total Protein 6.5 5.9 L (6.0-8.3) gm/dl Albumin 4.1 3.5 (3.4-5.0) gm/dl Intake and Output 05/17/24 05/18/24 05/18/24 22:59 06:59 14:59 Intake Total 100 / 200 100 / 200 Output Total 200 / 200 Balance -100 / 0 100 / 0 Intake: IV 100 / 200 100 / 200 Magnesium Sulfate / D5w 1 gm In 100 / 200 100 / 200 100 ml @ 50 mls/hr IV Q2H KAYLIN Rx#:[id number] Output: Urine 200 / 200 Other: # Unmeasured Voids 2 Weight 77 kg 77.1 kg Weight Measurement Method Built in [facility] Built in [facility] Diagnostic Findings EKG on presentation revealed normal sinus rhythm at 83 bpm with left axis deviation and diffuse/marked T wave changes. EKG performed this morning was technically limited though revealing sinus rhythm at 69 bpm with left axis deviation, diffuse marked STT wave changes. High-sensitivity troponin elevated as follows: 16.5 -> 29.7-> 38.8 -> 31.1 -> 17.9 pg/mL Continuous telemetry monitoring reveals sinus throughout, heart rates predominantly in the 50s to 70s. No significant ectopy, atrial fibrillation, or ventricular tachycardia May 18, 2024 TTE Interpretation Summary ([facility], Dr. You): Moderate concentric LVH. Localized apical hypokinesis with mild apical expansion, and with normal contractility of the basilar wall segments. Pattern consistent with apical ballooning cardiomyopathy history. Left ventricular ejection fraction 40 to 45%. Grade 2 diastolic dysfunction, consistent with elevated left atrial pressure. Mildly dilated left atrium. Moderate aortic valve sclerosis without significant stenosis. Trace aortic regurgitation.
[2024-05-18] MEDS ORDERED: NON-FORMULARY MEDICATION (Biotin 1,000 mcg Tablet,Chewable) PO SCH (11:30)
[2024-05-18] MEDS ORDERED: NON-FORMULARY MEDICATION (Coq10 (Ubiquinol) 100 mg Capsule) PO SCH (11:30)
[2024-05-18] MEDS ORDERED: [UNRECOGNIZED DRUG - OTHER] PO SCH (11:30)
[2024-05-18] MEDS ORDERED: OMEGA DHA EPA FISH OIL PO SCH (11:30)
[2024-05-18] MEDS ORDERED: NON-FORMULARY MEDICATION (Flaxseed Oil 1,000 mg Capsule) PO SCH (11:30)
[2024-05-18] MEDS ORDERED: NON-FORMULARY MEDICATION (Glucosamine-Msm-Magnesium-Vitc [Glucosamine Complex-Msm] Capsule PO SCH (11:30)
[2024-05-18] MEDS: CALCIUM 600MG + VIT D 400 IU TAB PO SCH (11:32)
[2024-05-18] MEDS: ASCORBIC ACID 500 MG TAB PO SCH (11:32)
[2024-05-18] MEDS: MULTIVITAMIN TAB PO SCH (11:33)
[2024-05-18] MEDS: CHOLECALCIFEROL 25 MCG (1000 UNITS) TAB PO SCH (11:33)
[2024-05-18] MEDS: CYANOCOBALAMIN (B-12) 500 MCG TABLET PO SCH (11:33)
--- NOTE | 2024-05-18 13:38 | Hospitalist Progress Note ---
Date of Service May 18, 2024 Assessment & Plan (1) Pulmonary edema: (2) Takotsubo cardiomyopathy: Plan: Patient is a 78 year old female with recent diagnosis of Takatsubo Cardiomyopathy with NSTEMI, history of Asthma, Pancreatic insufficiency, Breast Cancer s/p radiation, other problems noted below presenting with shortness of breath x 3-4 days. Recently discharged from [facility] in [place] last May 09, 2024 after presenting with chest tightness and was diagnosed with Takatsubo Cardiomyopathy and NSTEMI. She was given Lasix and was discharged on Metoprolol XL and Valsartan. Cardiac Cath: negative for coronary artery disease as per pat ient PULMONARY EDEMA TAKOTSUBO CARDIOMYOPATHY, RECENT DIAGNOSIS Presenting with shortness of breath with exertion, while supine no chest pain BNP elevated 1,300s Trop flat EKG T wave depressions inferior and anteroseptal leads echocardiogram with EF 40-45%, Grade II diastolic dysfunction Was initially on Lasix 40mg IV daily with home Metoprolol XL 25mg daily, Valsartan 40mg po daily Cardiology consulted -recommended transition to po lasix 20mg daily and spironolactone 12.5mg daily PROLONGED QTC QTc 519 on admission repeat EKGs ASTHMA not in exacerbation continue Arnuity Ellipta, Montelukast PANCREATIC INSUFFICIENCY continue Zenpep with meals MIGRAINE continue PRN Sumatriptan, Celebrex ALCOHOL USE patient reports having 2-3 drinks of wine or cocktail/day HISTORY OF BREAST CANCER S/P RADIATION 2017 Diet: HH/low sodium DVT PROPHYLAXIS: heparin SQ Dispo: home once medically stable Admission and Anticipated Discharge Date Admission Date: May 17, 2024 Subjective patient was seen laying in bed Noted that her shortness of breath was much improved Stated that she had an episode of chest pressure overnight that has since resolved Review of Systems Review of Systems: All systems reviewed & are unremarkable except as noted in Subjective Physical Exam Physical Exam: General: Alert, oriented. No acute distress Skin: No noted rashes or bruises Psych: Appropriate mood and affect HEENT: NC/AT CV: RRR Resp: Breath sounds clear bilaterally, no increased effort of breathing Abdomen:Soft, nontender Extremities: trace edema in lower extremities bilaterally. Results & Data Results & Data Vital Signs (Past 12 Hours) Vital Signs Temp Pulse Resp BP Pulse Ox O2 Del Method 05/18/24 11:33 36.8 C 60 20 111/68 96 Room Air 05/18/24 09:41 Room Air 05/18/24 07:26 36.6 C 59 L 17 112/66 97 Room Air 05/18/24 03:47 36.6 C 53 L 18 100/64 95 Room Air Diagnostic Findings Chest X-Ray 05/17/24 10:50 XR chest 1V portable HISTORY: 78 years-old Female Chest pain, nonspecific COMPARISON: 05/15/2013 TECHNIQUE: AP view the chest FINDINGS: Cardiac silhouette is upper limits of normal in size. No pneumothorax, pleural effusion, or overt pulmonary edema. There is mild subsegmental lateral right lung base opacities. Surgical clips project over the right axilla. Bones appear grossly intact. IMPRESSION: Mild subsegmental lateral right lung base opacities may represent a mild pneumonitis versus atelectasis/scarring. ACT 112: Negative or not required by law. The above report was generated using voice recognition software. It may contain grammatical, syntax or spelling errors. Electronically signed by: Orville Alejandro M.D. 05/17/2024 11:18 AM Chest CTA 05/17/24 12:48 CT angio chest dissec wo/w con CT DOSE: 1337.74 mGy.cm HISTORY: 78 years-old Female with shortness of breath; recent cath; headache. Acute shortness of breath with recent cardiac catheterization TECHNIQUE: Multiple CTA images of the chest were obtained before and after the intravenous administration of 119 ml Optiray. Coronal and sagittal MIPS were obtained from the axial data set and were submitted for review. All measurements were obtained according to NASCET criteria. A dose lowering technique was utilized adhering to the principles of ALARA. COMPARISON: Chest radiograph of same day. FINDINGS: CTA: Mild cardiomegaly without pericardial effusion. No thoracic aortic aneurysm, dissection or intramural hematoma. Great vessels appear intact. There is descending thoracic aortic tortuosity. Mild atherosclerosis. No pulmonary emboli identified. CT CHEST: Unremarkable thyroid. There are a few borderline enlarged mediastinal lymph nodes measuring up to 10 mm. There is circumferential wall thickening involving the mid to distal esophagus with adjacent periesophageal inflammatory stranding. Small hiatal hernia. Possible postoperative changes of the proximal stomach. Trace pleural effusions. No pneumothorax. Mild intralobular septal thickening with bibasilar subsegmental atelectasis. No definitively suspicious pulmonary nodules or masses. Central airways appear patent. Probable cyst of the right hepatic lobe on image 52 series 5 measuring 1.4 cm. Biopsied and partially calcified lesions of the right breast with right axillary surgical clips. Probable small seroma associated with the lesion on image 139 measuring 8 mm. No acute fracture or suspicious bone lesion. IMPRESSION: 1. Cardiomegaly with mild interstitial pulmonary edema, trace pleural effusions with mild subsegmental bibasilar atelectasis. 2. No acute aortic pathology or pulmonary embolus. 3. Mid to distal esophageal wall thickening with adjacent periesophageal inflammation/trace fluid suggestive of esophagitis. Findings could be correlated with endoscopy. 4. Borderline enlarged mediastinal lymph nodes, likely reactive. ACT 112: Negative or not required by law. The above report was generated using voice recognition software. It may contain grammatical, syntax or spelling errors. Electronically signed by: Orville Alejandro M.D. 05/17/2024 1:56 PM
--- NOTE | 2024-05-18 15:45 | Electrocardiogram Report ---
Test Reason : Blood Pressure : */* mmHG Vent. Rate : 69 BPM Atrial Rate : 69 BPM P-R Int : 180 ms QRS Dur : 104 ms QT Int : 526 ms P-R-T Axes : 47 -81 240 degrees QTcB Int : 563 ms Normal sinus rhythm Left axis deviation Prolonged QT Abnormal ECG When compared with ECG of 17-May-2024 10:55, No significant change was found Confirmed by Tone Conte ([id number]) on 05/18/2024 3:44:49 PM Referred By: REFERRED SELF Confirmed By: Tone Conte
[2024-05-18] MEDS ORDERED: POLYETHYLENE (MIRALAX) 17 GM PACK PO PRN (19:31)
[2024-05-18] MEDS: DOCUSATE SODIUM 100 MG CAP PO SCH (20:31)
[2024-05-18] MEDS: HEPARIN SOD 5,000 UNIT/0.5 ML VIAL SQ SCH (20:58)
[2024-05-19 06:20] LABS: Hematocrit (blood only) 36.1 % (37.0-47.0); Hemoglobin 12.7 g/dl (12.0-16.0); Mean Corpuscular Hemoglobin 31.4 pg (25.0-34.0); Mean Corpuscular Hgb Conc 35.2 g/dL (32.0-36.0); Mean Corpuscular Volume 89.4 fL (80.0-100.0); Mean Platelet Volume 9.9 fL (9.4-12.4); Platelet Count 179 K/uL (130-400); RDW Coefficient of Variation 13.4 % (11.5-14.5); RDW Standard Deviation 43.9 fL (36.4-46.3); Red Blood Count 4.04 M/uL (4.20-5.40); White Blood Count 3.84 K/ul (4.8-10.8)
[2024-05-19 06:36] LABS: BUN Creatinine Ratio 14.4 (10-20); Calcium 8.8 mg/dl (8.6-10.3); Creatinine Clr Calc Pharmacy 44.3 ml/min; Magnesium 2.1 mg/dl (1.7-2.4); Phosphorus 4.8 mg/dl (2.5-4.9); Potassium 3.7 mmol/L (3.5-5.1)
[2024-05-19] MEDS: SPIRONOLACTONE 12.5 MG TAB PO SCH (08:36)
[2024-05-19] MEDS: FUROSEMIDE 20 MG TAB PO SCH (08:36)
[2024-05-19 10:38] VITALS: PULSE 60
[2024-05-19 11:20] VITALS: RESP 20; TEMP 98.9; O2SAT 94
--- NOTE | 2024-05-19 13:36 | Discharge Summary ---
Discharge Summary Date of Service May 19, 2024 Principal Dx & Hospital Course #1 = Principal Diagnosis (1) Pulmonary edema: (2) Takotsubo cardiomyopathy: Plan Patient is a 78 year old female with recent diagnosis of Takatsubo Cardiomyopathy with NSTEMI, history of Asthma, Pancreatic insufficiency, Breast Cancer s/p radiation, other problems noted below presenting with shortness of breath x 3-4 days. Recently discharged from [facility] in [place] on May 09, 2024 after presenting with chest tightness and was diagnosed with Takatsubo Cardiomyopathy and NSTEMI. She was given Lasix and was discharged on Metoprolol XL and Valsartan. Cardiac Cath: negative for coronary artery disease as per patient PULMONARY EDEMA TAKOTSUBO CARDIOMYOPATHY, RECENT DIAGNOSIS Presenting with shortness of breath with exertion while supine Denies chest pain BNP elevated 1,300s Trop peaking at 38 before downtrending to 17 EKG noting T wave depressions, inferior and anteroseptal leads Echocardiogram with EF 40-45%, Grade II diastolic dysfunction, Moderate concentric left ventricular hypertrophy, localized hypokinesis with mild apical wall expansion with pattern consistent with apical ballooning cardiomyopathy, left atrium mildly dilated, aortic valve sclerosis without aortic stenosis, trace aortic regurgitation, mild to moderate mitral regurgitation, with no suggestion of pulmonary hypertension. Was initially on Lasix 40mg IV daily with home Metoprolol XL 25mg daily, Valsartan 40mg po daily Cardiology consulted, recommended/stated the following on 05/18/24: "Continue metoprolol succinate 25 mg/day Continue valsartan 40 mg/day Add oral furosemide 20 mg/day Add spironolactone, 12.5 mg/day Avoid QTc prolonging medications Aspiration evaluation/precautions Outpatient follow-up with cardiology and family practitioner in [place]" Please ensure close follow-up with cardiology after discharge PROLONGED QTC QTc 519 on admission Then progressed to 563, decreased to the 530s on discharge Pt is on hydroxyzine scheduled for itching Discussion of need to wean off and alternative medication for symptoms. States she is on Dupixent prescribed by her road hogger operator, and can wean off the hydroxyzine PCP follow-up for continued monitoring and hydroxyzine weaning Possible Esophagitis Noted on CTA chest Pt notes a hx of prior EGDs and repaired hiatal hernia notes never took a ppi Follows with GI in [place] and would like to discuss the findings and possibly starting a ppi once more with her art specialist Please ensure close GI followup after discharge ASTHMA not in exacerbation continue Arnuity Ellipta, Montelukast PANCREATIC INSUFFICIENCY continue Zenpep with meals MIGRAINE continue PRN Sumatriptan, Celebrex ALCOHOL USE patient reports having 2-3 drinks of wine or cocktail/day HISTORY OF BREAST CANCER S/P RADIATION 2017 pcp f/u Notes For Next Care Provider Please ensure close Cardiology followup after discharge Pt with prolonged qtc-advised to wean off of hydroxyzine. Avoid qtc prolonging medications given her cardiac history GI followup for noted possible esophagitis on imaging Medication Changes From Visit po lasix 20mg daily po spironolactone 12.5mg daily Admission HPI Per Admitting Provider Patient is a 78 year old female with recent diagnosis of Takotsubo Cardiomyopathy with NSTEMI, history of Asthma, Pancreatic insufficiency, Breast Cancer s/p radiation, other problems noted below presenting with shortness of breath x 3-4 days. Patient is visiting [place] from [place]. She was recently discharged from [facility] in [place] last May 09, 2024 after presenting with chest tightness and was diagnosed with Takatsubo Cardiomyopathy and NSTEMI. She was given Lasix and was discharged on Metoprolol XL and Valsartan. Cardiac Cath: negative for coronary artery disease as per patient For the past 3-4 days, patient reports progressive shortness of breath even with mild exertion and with laying flat. At the ER, patient received with essentially stable vital signs, >90% on room air. BNP elevated at [address] chest: no acute PE 1. Cardiomegaly with mild interstitial pulmonary edema, trace pleural effusions with mild subsegmental bibasilar atelectasis. 2. No acute aortic pathology or pulmonary embolus. 3. Mid to distal esophageal wall thickening with adjacent periesophageal inflammation/trace fluid suggestive of esophagitis. Findings could be correlated with endoscopy. 4. Borderline enlarged mediastinal lymph nodes, likely reactive. Patient was given Lasix 40mg IV at the ER. On exam, patient seen resting in bed, sitting up, not in distress, speaks in sentences with no effort. She still has some shortness of breath, occasional dry cough, but denies chest pain, palpitations, dizziness or any other symptoms. Admission Exam Per Admitting Provider General- oriented x 3, not in distress, speaks in sentences with no effort or accessory muscle use Head- atraumatic Eyes- PERRL, EOMI, anicteric ENT- oropharynx clear Neck- supple, (+) JVD, no adenopathy, no thyromegaly; carotids +2/2, no bruits appreciated Lungs- mild rales at the bases no wheezing Heart- normal rate, regular rhythm; no murmur, no gallop, no rub appreciated Abdomen- normal bowel sounds, nondistended, soft, nontender, no masses or hepatosplenomegaly Extremities- trace pretibial edema, no calf tenderness; peripheral pulses intact Neuro- alert, oriented x 3; CN 2-12 grossly intact; motor 5/5 bilaterally;sensation 100% on all extremities; no other gross focal neurologic deficits Skin- warm & dry Discharge Exam General: Alert, oriented. No acute distress Skin: No noted rashes or bruises Psych: Appropriate mood and affect HEENT: NC/AT CV: RRR Resp: Breath sounds clear bilaterally, no increased effort of breathing Abdomen:Soft, nontender Extremities: trace edema in lower extremities bilaterally. Updated Medication List Medication Instructions Recorded Confirmed Type ascorbic acid (vitamin C) 1,000 mg 1,000 mg PO QDL ##0 05/15/13 05/17/24 History tablet biotin 1,000 mcg chewable tablet 1,000 mcg PO QDL ##0 05/15/13 05/17/24 History calcium 600 mg (as 1 tab PO QDL ##0 05/15/13 05/17/24 History carbonate)-vitamin D3 10 mcg (400 unit) tablet (Calcium 600 + D(3)) cholecalciferol (vitamin D3) 25 25 mcg PO QDL ##0 05/15/13 05/17/24 History mcg (1,000 unit) tablet (Vitamin D3) coQ10 (ubiquinol) 100 mg capsule 100 mg PO QDL ##0 05/15/13 05/17/24 History cyanocobalamin (vitamin B-12) 1,000 mcg PO QDL ##0 05/15/13 05/17/24 History 1,000 mcg tablet (Vitamin B-12) flaxseed oil 1,000 mg capsule 1,000 mg PO QDL ##0 05/15/13 05/17/24 History qyudmwcqxqf-ocd-sjqzykoik-vitC 3 tabs PO QDL ##0 05/15/13 05/17/24 History capsule (Glucosamine Complex-MSM capsule) ibuprofen 200 mg tablet 400 - 600 mg PO DAILY PRN Pain #0 05/15/13 05/17/24 History tabs multivitamin 1 tab PO QDL ##0 05/15/13 05/17/24 History omega 1-vua-pee-fish oil 900 1 cap PO QDL ##0 05/15/13 05/17/24 History mg-1,400 mg capsule,delayed release atorvastatin 10 mg tablet 10 mg PO QAM 05/17/24 05/17/24 History fluticasone furoate 50 1 inh inhalation QAM 05/17/24 05/17/24 History mcg/actuation blister powder for inhalation (Arnuity Ellipta) hydroxyzine HCl 25 mg tablet 25 mg PO BID 05/17/24 05/17/24 History dfccyv-ejjdasjz-glerccq 1 - 3 cap PO UD 05/17/24 05/17/24 History 40,000-126,000-168,000 unit capsule, delay rel (Zenpep) metoprolol succinate 25 mg 25 mg PO QPM 05/17/24 05/17/24 History tablet,extended release 24 hr montelukast 10 mg tablet 10 mg PO QAM 05/17/24 05/17/24 History sumatriptan succinate 50 mg tablet 50 mg PO DAILY PRN Migraine 05/17/24 05/17/24 History Headache trazodone 50 mg tablet 50 mg PO HS 05/17/24 05/17/24 History valsartan 40 mg tablet 40 mg PO QPM 05/17/24 05/17/24 History furosemide 20 mg tablet 20 mg PO QAM #30 tabs 05/19/24 Rx spironolactone 25 mg tablet 12.5 mg (1/2 x 25 mg) PO DAILY #15 05/19/24 Rx tabs Hospital Stay Data Consultations 05/17/24 14:22 ED Decision to Admit Stat 05/17/24 15:03 Consult Cardiology Routine 05/17/24 16:10 HIM [Consult Health Information Management] Routine Diagnostic Imagining Performed 05/17/24 12:48 CTA chest dissec wo/w con [CT angio chest dissec wo/w con] Stat Chest X-Ray 05/17/24 10:50 XR chest 1V portable HISTORY: 78 years-old Female Chest pain, nonspecific COMPARISON: 05/15/2013 TECHNIQUE: AP view the chest FINDINGS: Cardiac silhouette is upper limits of normal in size. No pneumothorax, pleural effusion, or overt pulmonary edema. There is mild subsegmental lateral right lung base opacities. Surgical clips project over the right axilla. Bones appear grossly intact. IMPRESSION: Mild subsegmental lateral right lung base opacities may represent a mild pneumonitis versus atelectasis/scarring. ACT 112: Negative or not required by law. The above report was generated using voice recognition software. It may contain grammatical, syntax or spelling errors. Electronically signed by: Orville Alejandro M.D. 05/17/2024 11:18 AM Chest CTA 05/17/24 12:48 CT angio chest dissec wo/w con CT DOSE: 1337.74 mGy.cm HISTORY: 78 years-old Female with shortness of breath; recent cath; headache. Acute shortness of breath with recent cardiac catheterization TECHNIQUE: Multiple CTA images of the chest were obtained before and after the intravenous administration of 119 ml Optiray. Coronal and sagittal MIPS were obtained from the axial data set and were submitted for review. All measurements were obtained according to NASCET criteria. A dose lowering technique was utilized adhering to the principles of ALARA. COMPARISON: Chest radiograph of same day. FINDINGS: CTA: Mild cardiomegaly without pericardial effusion. No thoracic aortic aneurysm, dissection or intramural hematoma. Great vessels appear intact. There is descending thoracic aortic tortuosity. Mild atherosclerosis. No pulmonary emboli identified. CT CHEST: Unremarkable thyroid. There are a few borderline enlarged mediastinal lymph nodes measuring up to 10 mm. There is circumferential wall thickening involving the mid to distal esophagus with adjacent periesophageal inflammatory stranding. Small hiatal hernia. Possible postoperative changes of the proximal stomach. Trace pleural effusions. No pneumothorax. Mild intralobular septal thickening with bibasilar subsegmental atelectasis. No definitively suspicious pulmonary nodules or masses. Central airways appear patent. Probable cyst of the right hepatic lobe on image 52 series 5 measuring 1.4 cm. Biopsied and partially calcified lesions of the right breast with right axillary surgical clips. Probable small seroma associated with the lesion on image 139 measuring 8 mm. No acute fracture or suspicious bone lesion. IMPRESSION: 1. Cardiomegaly with mild interstitial pulmonary edema, trace pleural effusions with mild subsegmental bibasilar atelectasis. 2. No acute aortic pathology or pulmonary embolus. 3. Mid to distal esophageal wall thickening with adjacent periesophageal inflammation/trace fluid suggestive of esophagitis. Findings could be correlated with endoscopy. 4. Borderline enlarged mediastinal lymph nodes, likely reactive. ACT 112: Negative or not required by law. The above report was generated using voice recognition software. It may contain grammatical, syntax or spelling errors. Electronically signed by: Orville Alejandro M.D. 05/17/2024 1:56 PM Discharge Instructions Given to Patient (Per Discharging Provider) Josefina, You were seen by the etl developer who determined that your shortness of breath was related to "mildly decompensated systolic heart failure". You were treated with a diuretic or a "water pill" and the etl developer recommends discharge home with oral versions of that medication as well. -Please continue with the oral furosemide 20mg daily and spironolactone 12.5mg daily Please continue with your other home cardiac medications as prescribed. Please keep close followup with your Climatology Teacher in [place] as well as your primary care provider. We also noted on the CT of your chest that you had findings suggestive of esophagitis. Upon further discussion with you, you declined starting medications to help, opting to follow up with your Dry Color Tester at home. Please keep close follow up with them after discharge. Again, please keep close follow up with your primary care provider and specialists after discharge. Best of luck to you and safe travels. Please do not drive home if you feel that your mental status is not at baseline. Please do not hesitate to go to the nearest emergency room if your symptoms worsen or return. It was a pleasure taking care of you while you were here. Total Time Total Time Spent Total Time Spent (In Minutes): 65
[2024-05-19 14:35] VITALS: BP 109/61
== END 2024-05-19 15:10 | disposition home or self-care (01) | DRG 280 ==
LOC: ED 10:40 → SUATTDRO 14:28 → 2S 14:28
DX: I11.0 Hypertensive heart disease with heart failure; J45.909 Unspecified asthma, uncomplicated; I51.81 Takotsubo syndrome; I50.23 Acute on chronic systolic (congestive) heart failure; Z87.891 Personal history of nicotine dependence; F10.90 Alcohol use, unspecified, uncomplicated; K20.90 Esophagitis, unspecified without bleeding; I21.4 Non-ST elevation (NSTEMI) myocardial infarction; K86.89 Other specified diseases of pancreas; Z92.3 Personal history of irradiation

== ENCOUNTER 2024-05-20 13:47 | Observation (INO) ==
[2024-05-20 15:10] LABS: Basophils # (auto) 0.04 K/uL (0.00-0.20); Basophils % (auto) 0.6 %; Eosinophils # (auto) 0.05 K/uL (0.00-0.50); Eosinophils % (auto) 0.8 %; Hemoglobin 15.5 g/dl (12.0-16.0); Immature Granulocytes # (auto) 0.05 K/uL (0.01-0.20); Immature Granulocytes % (auto) 0.8 %; Lymphocytes # (auto) 0.87 K/uL (1.20-3.40); Lymphocytes % (auto) 13.7 %; Mean Corpuscular Hemoglobin 31.1 pg (25.0-34.0); Mean Corpuscular Hgb Conc 35.2 g/dL (32.0-36.0); Mean Corpuscular Volume 88.2 fL (80.0-100.0); Mean Platelet Volume 9.4 fL (9.4-12.4); Monocytes # (auto) 0.43 K/uL (0.11-0.59); Monocytes % (auto) 6.8 %; Neutrophils % (auto) 77.3 %; Platelet Count 232 K/uL (130-400); RDW Coefficient of Variation 13.4 % (11.5-14.5); RDW Standard Deviation 43.3 fL (36.4-46.3); Red Blood Count 4.99 M/uL (4.20-5.40); White Blood Count 6.34 K/ul (4.8-10.8)
--- NOTE | 2024-05-20 15:13 | XRay Report ---
EXAM: Radiograph of the Chest 1 View INDICATION: Chest pain. TECHNIQUE: Frontal view of the chest. COMPARISON: 05/17/2024 FINDINGS: Lungs and pleural spaces: No consolidation or pulmonary edema. No pleural effusion or pneumothorax. Heart: Prominent cardiac shadow accentuated by technique unchanged. Mediastinum: Normal contour. Bones/joints: No fracture, erosion or dislocation. Soft tissues: Right axillary surgical clips noted. Vasculature: Stable ectatic aorta. Upper abdomen: No abnormality noted. IMPRESSION: No acute cardiopulmonary disease. ACT 112: Negative or not required by law. Electronically signed by Dee Montaño 05-20-2024 3:13 PM
[2024-05-20 15:20] LABS: Albumin Globulin Ratio 1.5 (0.9-2); Albumin Level 4.8 gm/dl (3.4-5.0); Bilirubin,Total 0.7 mg/dl (0.2-1.0); Calcium 9.8 mg/dl (8.6-10.3); Creatinine Clr Calc Pharmacy 48.5 ml/min; Globulin 3.3 gm/dl (2.5-4.0); Potassium 3.7 mmol/L (3.5-5.1); Total Protein 8.1 gm/dl (6.0-8.3)
[2024-05-20 15:25] LABS: Troponin I High Sensitivity 14.7 pg/ml (0-14)
--- NOTE | 2024-05-20 15:27 | Emergency Department Note ---
Impression & Plan Chest pain, Acute dyspnea, Elevated brain natriuretic peptide (BNP) level ED Provider Note NAME: LUMA YATES AGE: 78 SEX: F : 1945 ARRIVES VIA: Walk-In INFORMANT: Patient, ED PROVIDER(S): Emigdio Hays DO CHIEF COMPLAINT: Difficulty breathing HPI: The patient is a 78-year-old female who presented to the emergency department for an evaluation of difficulty breathing. The patient describes chest tightness and difficulty breathing. The patient had a similar episode when she was at home in [place]. She was thought to be suffering from reactive issue and had a cardiac catheterization. The patient did not have any requirement for stenting. The patient was seen in our facility while she was up. For the . She was admitted. It was felt that she was suffering from Takotsubo cardiomyopathy. She was started on a course of Lasix. She was feeling much better and was able to go home. The patient returns today because of ongoing and worsening symptoms. The patient is been compliant with her outpatient medications including Lasix. The patient denies having any recent trauma. She denies having any hemoptysis or leg swelling. ROS: See above HPI for pertinent positives & negatives. A total of 10 systems reviewed and were otherwise negative. PAST MEDICAL HISTORY: See Below PAST SURGICAL HISTORY: See Below FAMILY HISTORY: See Below SOCIAL HISTORY: See Below HOME MEDICATIONS: See Below ALLERGIES: See Below VITALS: See Below PHYSICAL EXAMINATION: GENERAL: Patient is awake alert in no acute distress patient is resting comfortably and showing no signs of anxiety EYES: The conjunctivae are clear. The pupils are round and reactive. EARS, NOSE, MOUTH AND THROAT: The nose is without any evidence of any deformity. NECK: The neck is nontender and supple. RESPIRATORY: Normal respiratory effort is noted there is no evidence of wheezing rhonchi or rales CARDIOVASCULAR: Regular rate and rhythm noted there no murmurs rubs or gallops normal S1 normal S2. GASTROINTESTINAL: The abdomen is soft. Abdomen is nontender. MUSCULOSKELETAL/EXTREMITIES: There is no evidence of gross deformity full range of motion is noted in the hips and shoulders. SKIN: There is no obvious evidence of any rash. There are no petechiae, pallor or cyanosis noted. NEUROLOGIC: Patient is awake alert and oriented x3 MEDICAL DECISION MAKING: Patient is a 78-year-old female who presented to the emergency department for an evaluation of chest discomfort and difficulty breathing. The patient was seen in our facility recently. She did have a cardiac catheterization that was consistent with a culprit lesion. She did not receive any stenting. The patient had this near her home in [place]. She was visiting family. She presented to our emergency department and was admitted for chest pain and elevated troponin. The patient returns today because of ongoing symptoms. The patient had a slight elevation in troponin which is not new. I discussed the patient's laboratory and radiographic studies with her. Chest x-ray was well- appearing but did show some mild vascular edema. For this reason she was treated with an IV dose of Lasix. She was reevaluated multiple times. I discussed the limitations of the emergency department workup for chest pain with her. Ultimately I do feel the patient would be a good candidate for outpatient treatment. When I discussed outpatient follow-up with the patient she became very tearful and she was worried that there is something else going on. She was not feeling any better and was requesting to be evaluated by the hospitalist for possible inpatient management. For this reason I discussed her condition with the on-call hospitalist. Triage Nursing notes reviewed. Prior medical records reviewed Vital Signs: reviewed and remarkable for no significant abnormalities Differential diagnosis: Cardiac ischemia, aortic dissection, pulmonary embolism, pneumothorax, pneumonia, pericarditis, myocarditis, esophageal rupture, GERD, cholecystitis, pancreatitis, musculoskeletal, as well as other pathologies. ER treatment provided: See below Diagnostics interpreted by me: ECG: EKG was obtained in the emergency department. My interpretation is normal sinus rhythm at 76 bpm. There was no ectopy. T wave inversions were noted in the inferior and lateral leads. This was compared to a tracing from May 17, 2024. No changes were noted. Cardiac Monitoring: An order was placed for continuous cardiac monitoring. The monitor shows a rate of 71 bpm with sinus rhythm. Laboratory studies: As stated above and show below. Imaging studies: See below. Radiographic imaging was reviewed by myself Consultation(s): I disc this case with Dr. Baptiste who is on-call for the [facility] hospitalist group. Past Med/Surg History Problem List (Updated 05/20/24 @ 18:06 by Emigdio Hays DO) Chest pain (Acute) HTN (hypertension) Chronic alcohol use Heart failure, systolic, with acute decompensation Takotsubo cardiomyopathy Pulmonary edema (Acute) Elevated brain natriuretic peptide (BNP) level (Acute) Acute exacerbation of CHF (congestive heart failure) (Acute) Acute dyspnea (Acute) Abdominal pain (Acute) Diarrhea (Acute) Social History Smoking Status: Never smoker Second Hand Exposure: No; Do You Dip or Chew Tobacco: No; Hx Alcohol Use: Yes Alcohol type: wine Hx Substance Use: No Preferred Language: Serbian Communication Ability: Effective Membership Administrator Required: No Beliefs That Will Affect Care: None Current Living Situation: Alone Feels Safe at Home: Yes Assistive Devices: None Allergies Allergies Allergy/AdvReac Type Severity Reaction Status Date / Time animal dander Allergy Severe Causes Unverified 05/17/24 14:33 asthma attack amlodipine Allergy Unknown "Just Unverified 05/17/24 14:33 doesn't agree with me." diltiazem Allergy Unknown "Just Unverified 05/17/24 14:33 doesn't agree with me." fluconazole Allergy Unknown "Just Unverified 05/17/24 14:33 doesn't agree with me." gabapentin Allergy Unknown "Just Unverified 05/17/24 14:33 doesn't agree with me." nebivolol [From Bystolic] Allergy Unknown "Just Unverified 05/17/24 14:33 doesn't agree with me." oxycodone Allergy Unknown "Just Unverified 05/17/24 14:33 doesn't agree with me." tramadol [From Ultram] Allergy Unknown "Just Unverified 05/17/24 14:33 doesn't agree with me." Home Meds Home Medications Medication Instructions Recorded Confirmed ascorbic acid (vitamin C) 1,000 mg 1,000 mg PO QDL ##0 05/15/13 05/17/24 tablet biotin 1,000 mcg chewable tablet 1,000 mcg PO QDL ##0 05/15/13 05/17/24 calcium 600 mg (as 1 tab PO QDL ##0 05/15/13 05/17/24 carbonate)-vitamin D3 10 mcg (400 unit) tablet (Calcium 600 + D(3)) cholecalciferol (vitamin D3) 25 25 mcg PO QDL ##0 05/15/13 05/17/24 mcg (1,000 unit) tablet (Vitamin D3) coQ10 (ubiquinol) 100 mg capsule 100 mg PO QDL ##0 05/15/13 05/17/24 cyanocobalamin (vitamin B-12) 1,000 mcg PO QDL ##0 05/15/13 05/17/24 1,000 mcg tablet (Vitamin B-12) flaxseed oil 1,000 mg capsule 1,000 mg PO QDL ##0 05/15/13 05/17/24 uppaufekfrs-pey-zxdbisiby-vitC 3 tabs PO QDL ##0 05/15/13 05/17/24 capsule (Glucosamine Complex-MSM capsule) ibuprofen 200 mg tablet 400 - 600 mg PO DAILY PRN Pain #0 05/15/13 05/17/24 tabs multivitamin 1 tab PO QDL ##0 05/15/13 05/17/24 omega 7-eiv-hrh-fish oil 900 1 cap PO QDL ##0 05/15/13 05/17/24 mg-1,400 mg capsule,delayed release atorvastatin 10 mg tablet 10 mg PO QAM 05/17/24 05/17/24 fluticasone furoate 50 1 inh inhalation QAM 05/17/24 05/17/24 mcg/actuation blister powder for inhalation (Arnuity Ellipta) hydroxyzine HCl 25 mg tablet 25 mg PO BID 05/17/24 05/17/24 gqwbrz-ihldishk-zkvelkr 1 - 3 cap PO UD 05/17/24 05/17/24 40,000-126,000-168,000 unit capsule, delay rel (Zenpep) metoprolol succinate 25 mg 25 mg PO QPM 05/17/24 05/17/24 tablet,extended release 24 hr montelukast 10 mg tablet 10 mg PO QAM 05/17/24 05/17/24 sumatriptan succinate 50 mg tablet 50 mg PO DAILY PRN Migraine 05/17/24 05/17/24 Headache trazodone 50 mg tablet 50 mg PO HS 05/17/24 05/17/24 valsartan 40 mg tablet 40 mg PO QPM 05/17/24 05/17/24 Previous Rx's Medication Instructions Recorded furosemide 20 mg tablet 20 mg PO QAM #30 tabs 05/19/24 spironolactone 25 mg tablet 12.5 mg (1/2 x 25 mg) PO DAILY #15 05/19/24 tabs Results & Data (ED) Vital Signs Vital Signs - 24 hr 05/20/24 14:19 05/20/24 15:33 05/20/24 15:36 Temperature 36.4 C L Temperature Source Temporal Artery Scan Pulse Rate 76 Pulse Rate [Left Apical] 69 Respiratory Rate 20 21 Respiratory Effort / Characteristics Non-Labored Spontaneous Short of Breath Respiratory Depth Normal Normal Respiratory Pattern Regular Regular Blood Pressure 156/86 H Blood Pressure [Right Arm] 149/104 H Blood Pressure Mean 109 Blood Pressure Mean [Right Arm] 119 Pulse Oximetry 96 99 Oxygen Delivery Method Room Air Room Air Room Air Sepsis Recent Fever Within 48 Hours No Sepsis New/Unexplained Change in Mental Status No Sepsis Action Taken by Nursing No Action Required 05/20/24 15:54 05/20/24 16:00 05/20/24 16:09 Temperature Temperature Source Pulse Rate 68 70 Pulse Rate [Left Apical] Respiratory Rate 19 Respiratory Effort / Characteristics Respiratory Depth Respiratory Pattern Blood Pressure 140/75 Blood Pressure [Right Arm] Blood Pressure Mean 112 Blood Pressure Mean [Right Arm] Pulse Oximetry 99 Oxygen Delivery Method Room Air Sepsis Recent Fever Within 48 Hours Sepsis New/Unexplained Change in Mental Status Sepsis Action Taken by Nursing 05/20/24 16:12 05/20/24 16:24 05/20/24 16:36 Temperature Temperature Source Pulse Rate 69 68 69 Pulse Rate [Left Apical] Respiratory Rate 13 13 14 Respiratory Effort / Characteristics Respiratory Depth Respiratory Pattern Blood Pressure Blood Pressure [Right Arm] Blood Pressure Mean Blood Pressure Mean [Right Arm] Pulse Oximetry 99 99 99 Oxygen Delivery Method Room Air Room Air Room Air Sepsis Recent Fever Within 48 Hours Sepsis New/Unexplained Change in Mental Status Sepsis Action Taken by Nursing 05/20/24 16:54 05/20/24 17:30 05/20/24 17:36 Temperature Temperature Source Pulse Rate 70 74 Pulse Rate [Left Apical] 71 Respiratory Rate 17 17 27 H Respiratory Effort / Characteristics Non-Labored Spontaneous Respiratory Depth Normal Respiratory Pattern Regular Blood Pressure Blood Pressure [Right Arm] 135/88 Blood Pressure Mean Blood Pressure Mean [Right Arm] 103 Pulse Oximetry 100 100 Oxygen Delivery Method Room Air Room Air Sepsis Recent Fever Within 48 Hours Sepsis New/Unexplained Change in Mental Status Sepsis Action Taken by Nursing 05/20/24 17:42 05/20/24 17:51 Temperature Temperature Source Pulse Rate 71 68 Pulse Rate [Left Apical] Respiratory Rate 14 20 Respiratory Effort / Characteristics Respiratory Depth Respiratory Pattern Blood Pressure Blood Pressure [Right Arm] Blood Pressure Mean Blood Pressure Mean [Right Arm] Pulse Oximetry Oxygen Delivery Method Sepsis Recent Fever Within 48 Hours Sepsis New/Unexplained Change in Mental Status Sepsis Action Taken by [facility] Medications Current Medication List: was personally reviewed by me Laboratory Data Attestation: I reviewed the patient's lab results. 05/20/24 14:45 05/20/24 14:45 Lab Results 05/20/24 05/20/24 05/20/24 Range/Units 14:45 15:14 17:29 WBC 6.34 (4.8-10.8) K/ul RBC 4.99 (4.20-5.40) M/uL Hgb 15.5 (12.0-16.0) g/dl Hct 44.0 (37.0-47.0) % MCV 88.2 (80.0-100.0) fL MCH 31.1 (25.0-34.0) pg MCHC 35.2 (32.0-36.0) g/dL RDW Std Deviation 43.3 (36.4-46.3) fL RDW Coeff of Braulio 13.4 (11.5-14.5) % Plt Count 232 (130-400) K/uL MPV 9.4 (9.4-12.4) fL Immature Gran % (Auto) 0.8 % Neut % (Auto) 77.3 % Lymph % (Auto) 13.7 % [place] % (Auto) 6.8 % Eos % (Auto) 0.8 % Baso % (Auto) 0.6 % Neut # (Auto) 4.90 (1.40-6.50) K/uL Lymph # (Auto) 0.87 L (1.20-3.40) K/uL [place] # (Auto) 0.43 (0.11-0.59) K/uL Eos # (Auto) 0.05 (0.00-0.50) K/uL Baso # (Auto) 0.04 (0.00-0.20) K/uL Immature Gran # (Auto) 0.05 (0.01-0.20) K/uL PT 10.5 (9.0-12.0) Seconds INR 1.0 (0.9-1.1) APTT 27 (21-31) Seconds PTT Ratio 1.0 Sodium 138 (136-145) mmol/L Potassium 3.7 (3.5-5.1) mmol/L Chloride 101 (98-107) mmol/L Carbon Dioxide 27 (21-32) mmol/L Anion Gap 10 (3-11) BUN 14 (6-23) mg/dl Creatinine 1.00 (0.6-1.2) mg/dl Est Cr Clr Drug Dosing 48.5 ml/min eGFR 58.39 BUN/Creatinine Ratio 14.0 (10-20) Glucose 91 (70-99(Fasting)) mg/dl Calcium 9.8 (8.6-10.3) mg/dl Total Bilirubin 0.7 (0.2-1.0) mg/dl AST 21 (13-39) U/L ALT 15 (7-52) U/L Alkaline Phosphatase 54 (34-104) U/L Troponin I High Sens 14.7 H 14.9 H (0-14) pg/ml B-Natriuretic Peptide 338 H (0-100) pg/ml Total Protein 8.1 (6.0-8.3) gm/dl Albumin 4.8 (3.4-5.0) gm/dl Globulin 3.3 (2.5-4.0) gm/dl Albumin/Globulin Ratio 1.5 (0.9-2) Administered Medications Discontinued Medications Al Hydrox/Mg Hydrox/Simethicone (Aluminum/Magnesium Susp 30 Ml Udc) 30 ml PO NOW STA Stop: 05/20/24 15:08 Last Admin: 05/20/24 15:36 Dose: 30 ml Documented By: [facility] Furosemide (Furosemide 40 Mg/4 Ml Vial) 40 mg IV ONE ONE Stop: 05/20/24 16:48 Last Admin: 05/20/24 17:31 Dose: 40 mg Documented By: [facility] Pantoprazole Sodium (Pantoprazole 40 Mg Tab) 40 mg PO NOW STA Stop: 05/20/24 15:08 Last Admin: 05/20/24 15:36 Dose: 40 mg Documented By: [facility] Imaging Data Attestation: I personally reviewed and interpreted this imaging study as follows: My Impression: 1 view chest x-ray was obtained in the emergency department. My interpretation is no free air or definite infiltrate, final report below. Radiologist's Impression: Chest X-Ray 05/20/24 14:22 EXAM: Radiograph of the Chest 1 View INDICATION: Chest pain. TECHNIQUE: Frontal view of the chest. COMPARISON: 05/17/2024 FINDINGS: Lungs and pleural spaces: No consolidation or pulmonary edema. No pleural effusion or pneumothorax. Heart: Prominent cardiac shadow accentuated by technique unchanged. Mediastinum: Normal contour. Bones/joints: No fracture, erosion or dislocation. Soft tissues: Right axillary surgical clips noted. Vasculature: Stable ectatic aorta. Upper abdomen: No abnormality noted. IMPRESSION: No acute cardiopulmonary disease. ACT 112: Negative or not required by law. Electronically signed by Dee Montaño 05-20-2024 3:13 PM Discharge Plan Visit Data Chief Complaint: Shortness of Breath/Dyspnea Stated Complaint: SOB, LIGHTHEADED, HEART FAILURE ED Provider: Emigdio Hays Discharge Problem: Chest pain, Acute dyspnea, Elevated brain natriuretic peptide (BNP) level Patient Disposition: Being Evaluated by Hospitalist Forms Stand Alone Forms: My [facility] [place] [facility] Prescriptions Prescriptions: No Action multivitamin Tablet 1 tab PO QDL Qty: 0 ascorbic acid (vitamin C) 1,000 mg Tablet 1,000 mg PO QDL Qty: 0 cyanocobalamin (vitamin B-12) [Vitamin B-12] 1,000 mcg Tablet 1,000 mcg PO QDL Qty: 0 flaxseed oil 1,000 mg Capsule 1,000 mg PO QDL Qty: 0 Rx Instructions: administer with a meal ibuprofen 200 mg Tablet 400 - 600 mg PO DAILY PRN (Reason: Pain) Qty: 0 Glucosamine Complex-MSM Capsule 3 tabs PO QDL Qty: 0 cholecalciferol (vitamin D3) [Vitamin D3] 25 mcg (1,000 unit) Tablet 25 mcg PO QDL Qty: 0 calcium carbonate-vitamin D3 [Calcium 600 + D(3)] 600 mg-10 mcg (400 unit) Tablet 1 tab PO QDL Qty: 0 omega 0-daf-ncg-fish oil 900-1,400 mg Capsule,Delayed Release(Dr/Ec) 1 cap PO QDL Qty: 0 coQ10 (ubiquinol) 100 mg Capsule 100 mg PO QDL Qty: 0 biotin 1,000 mcg Tablet,Chewable 1,000 mcg PO QDL Qty: 0 trazodone 50 mg tablet 50 mg PO HS atorvastatin 10 mg tablet 10 mg PO QAM sumatriptan succinate 50 mg tablet 50 mg PO DAILY PRN (Reason: Migraine Headache) montelukast 10 mg tablet 10 mg PO QAM hydroxyzine HCl 25 mg tablet 25 mg PO BID metoprolol succinate 25 mg tablet extended release 24 hr 25 mg PO QPM valsartan 40 mg tablet 40 mg PO QPM Zenpep 40,000-126,000- 168,000 unit capsule,delayed release(DR/EC) 1 - 3 cap PO UD Rx Instructions: Pt takes 1 - 3 capsules depending on size of meal/snack. Takes with each meal/snack. Arnuity Ellipta 50 mcg/actuation blister with device 1 inh INHALATION QAM spironolactone 25 mg Tablet 12.5 mg PO DAILY Qty: 15 0RF furosemide 20 mg Tablet 20 mg PO QAM Qty: 30 0RF Referrals Referrals: Odalis Engle MD [Primary Care Provider] - Discharge Problem: Chest pain Qualifiers: Chest pain type: unspecified Qualified Code(s): R07.9 - Chest pain, unspecified
[2024-05-20] MEDS: ALUMINUM/MAGNESIUM SUSP 30 ML UDC PO STA (15:36)
[2024-05-20] MEDS: PANTOprazole 40 MG TAB PO STA (15:36)
[2024-05-20 15:43] LABS: Partial Thromboplastin Time 27 Seconds (21-31); Prothrombin Time 10.5 Seconds (9.0-12.0)
[2024-05-20] MEDS: FUROSEMIDE 40 MG/4 ML VIAL IV ONE (17:31)
[2024-05-20] MEDS ORDERED: SUMAtriptan succinate 50 MG TAB PO PRN (19:21)
--- NOTE | 2024-05-20 19:21 | History & Physical Report ---
Date of Service May 20, 2024 Assessment & Plan (1) Heart failure, systolic, with acute decompensation: (2) Takotsubo cardiomyopathy: (3) Acute dyspnea: Plan: Patient is a 78 year old female with recent diagnosis of Takatsubo Cardiomyopathy with NSTEMI, history of Asthma, Pancreatic insufficiency, Breast Cancer s/p radiation, other problems noted below presenting with shortness of breath x 3-4 days. Recently discharged from [facility] on May 09, 2024 after presenting with chest tightness and was diagnosed with Takatsubo Cardiomyopathy and NSTEMI. She was given Lasix and was discharged on Metoprolol XL and Valsartan. Cardiac Cath: negative for coronary artery disease as per patient Acute exacerbation of CHF, Systolic, Diastolic Type TAKOTSUBO CARDIOMYOPATHY, RECENT DIAGNOSIS discharged on Lasix 20 mg p.o. daily and spironolactone 12.5 mg p.o. daily still reports shortness of breath Transition again to Lasix IV 20 mg daily Cardiology consult PROLONGED QTC QTc 502 monitor hold hydroxyzine Possible Esophagitis Noted on CTA chest Pt notes a hx of prior EGDs and repaired hiatal hernia notes never took a ppi Follows with GI in [place] and would like to discuss the findings and possibly starting a ppi once more with her collector Please ensure close GI followup after discharge - reports epigastric discomfort - protonix PO daily ASTHMA not in exacerbation continue Arnuity Ellipta, Montelukast PANCREATIC INSUFFICIENCY continue Zenpep with meals MIGRAINE continue PRN Sumatriptan, Celebrex ALCOHOL USE patient reports having 2-3 drinks of wine or cocktail/day HISTORY OF BREAST CANCER S/P RADIATION 2018 History of Present Illness Chief Complaint: Shortness of breath with minimal exertion Primary Care Provider: Odalis Engle MD Patient is a 78 year old female with recent diagnosis of Takotsubo Cardiomyopathy with NSTEMI, history of Asthma, Pancreatic insufficiency, Breast Cancer s/p radiation, other problems noted below presenting Again to the ER with shortness of breath. Patient was discharged yesterday from [facility] after being treated for CHF exacerbation secondary to Takotsubo, grade 2 diastolic dysfunction. She was discharged on Lasix 20 mg p.o. daily and spironolactone 12.5 mg p.o. daily As per patient she started to have shortness of breath with minimal exertion again today associated with lightheadedness. No chest pain, palpitations, dizziness. CXR: No acute cardiopulmonary disease. BNP 300s Patient given Lasix 40mg IV, Protonix, Maalox at the ER. Allergies Allergy/AdvReac Type Severity Reaction Status Date / Time animal dander Allergy Severe Causes Unverified 05/17/24 14:33 asthma attack amlodipine Allergy Unknown "Just Unverified 05/17/24 14:33 doesn't agree with me." diltiazem Allergy Unknown "Just Unverified 05/17/24 14:33 doesn't agree with me." fluconazole Allergy Unknown "Just Unverified 05/17/24 14:33 doesn't agree with me." gabapentin Allergy Unknown "Just Unverified 05/17/24 14:33 doesn't agree with me." nebivolol [From Bystolic] Allergy Unknown "Just Unverified 05/17/24 14:33 doesn't agree with me." oxycodone Allergy Unknown "Just Unverified 05/17/24 14:33 doesn't agree with me." tramadol [From Ultram] Allergy Unknown "Just Unverified 05/17/24 14:33 doesn't agree with me." Home Medications Medication Instructions Recorded Confirmed Type ascorbic acid (vitamin C) 1,000 mg 1,000 mg PO QDL ##0 05/15/13 05/20/24 History tablet biotin 1,000 mcg chewable tablet 1,000 mcg PO QDL ##0 05/15/13 05/20/24 History calcium 600 mg (as 1 tab PO QDL ##0 05/15/13 05/20/24 History carbonate)-vitamin D3 10 mcg (400 unit) tablet (Calcium 600 + D(3)) cholecalciferol (vitamin D3) 25 25 mcg PO QDL ##0 05/15/13 05/20/24 History mcg (1,000 unit) tablet (Vitamin D3) coQ10 (ubiquinol) 100 mg capsule 100 mg PO QDL ##0 05/15/13 05/20/24 History cyanocobalamin (vitamin B-12) 1,000 mcg PO QDL ##0 05/15/13 05/20/24 History 1,000 mcg tablet (Vitamin B-12) flaxseed oil 1,000 mg capsule 1,000 mg PO QDL ##0 05/15/13 05/20/24 History lhdzkdeffon-cze-qqgifafyt-vitC 3 tabs PO QDL ##0 05/15/13 05/20/24 History capsule (Glucosamine Complex-MSM capsule) ibuprofen 200 mg tablet 400 - 600 mg PO DAILY PRN Pain #0 05/15/13 05/20/24 History tabs multivitamin 1 tab PO QDL ##0 05/15/13 05/20/24 History omega 8-smm-qgf-fish oil 900 1 cap PO QDL ##0 05/15/13 05/20/24 History mg-1,400 mg capsule,delayed release atorvastatin 10 mg tablet 10 mg PO QAM 05/17/24 05/20/24 History fluticasone furoate 50 1 inh inhalation QAM 05/17/24 05/20/24 History mcg/actuation blister powder for inhalation (Arnuity Ellipta) hydroxyzine HCl 25 mg tablet 25 mg PO BID 05/17/24 05/20/24 History wgtvof-ieqqmanh-fnpeyay 1 - 3 cap PO UD 05/17/24 05/20/24 History 40,000-126,000-168,000 unit capsule, delay rel (Zenpep) metoprolol succinate 25 mg 25 mg PO QPM 05/17/24 05/20/24 History tablet,extended release 24 hr montelukast 10 mg tablet 10 mg PO QAM 05/17/24 05/20/24 History sumatriptan succinate 50 mg tablet 50 mg PO DAILY PRN Migraine 05/17/24 05/20/24 History Headache trazodone 50 mg tablet 50 mg PO HS 05/17/24 05/20/24 History valsartan 40 mg tablet 40 mg PO QPM 05/17/24 05/20/24 History furosemide 20 mg tablet 20 mg PO QAM #30 tabs 05/19/24 05/20/24 Rx spironolactone 25 mg tablet 12.5 mg (1/2 x 25 mg) PO DAILY #15 05/19/24 05/20/24 Rx tabs Past Med/Surg History Problem List (Updated 05/20/24 @ 18:06 by Emigdio Hays DO) Chest pain (Acute) HTN (hypertension) Chronic alcohol use Heart failure, systolic, with acute decompensation Takotsubo cardiomyopathy Pulmonary edema (Acute) Elevated brain natriuretic peptide (BNP) level (Acute) Acute exacerbation of CHF (congestive heart failure) (Acute) Acute dyspnea (Acute) Abdominal pain (Acute) Diarrhea (Acute) Social History Smoking Status: Never smoker Second Hand Exposure: No; Do You Dip or Chew Tobacco: No; Hx Alcohol Use: Yes Alcohol type: wine Hx Substance Use: No Preferred Language: Jamaican Communication Ability: Effective Chess Instructor Required: No Beliefs That Will Affect Care: None Current Living Situation: Alone Feels Safe at Home: Yes Assistive Devices: None Review of Systems Review of Systems: all noted and negative except for above Physical Exam Physical Exam: General- oriented x 3, not in distress, speaks in sentences with no effort or accessory muscle use Head- atraumatic Eyes- PERRL, EOMI, anicteric ENT- oropharynx clear Neck- supple, no JVD, no adenopathy, no thyromegaly; carotids +2/2, no bruits appreciated Lungs- mild rales at the bases Heart- normal rate, regular rhythm; no murmur, no gallop, no rub appreciated Abdomen- normal bowel sounds, nondistended, soft, nontender, no masses or hepatosplenomegaly Extremities-mild pretibial edema, no calf tenderness; peripheral pulses intact Neuro- alert, oriented x 3; CN 2-12 grossly intact; motor 5/5 bilaterally;s ensation 100% on all extremities; no other gross focal neurologic deficits Skin- warm & dry Results & Data Results & Data Vital Signs (Past 12 Hours) Vital Signs Temp Pulse Pulse Resp BP BP Pulse Ox 05/20/24 17:51 68 20 05/20/24 17:42 71 14 05/20/24 17:36 74 27 H 05/20/24 17:30 71 17 135/88 100 05/20/24 16:54 70 17 100 05/20/24 16:36 69 14 99 05/20/24 16:24 68 13 99 05/20/24 16:12 69 13 99 05/20/24 16:09 70 19 99 05/20/24 16:00 140/75 05/20/24 15:54 68 05/20/24 15:36 05/20/24 15:33 69 21 149/104 H 99 05/20/24 14:19 36.4 C L 76 20 156/86 H 96 O2 Del Method 05/20/24 17:51 05/20/24 17:42 05/20/24 17:36 05/20/24 17:30 Room Air 05/20/24 16:54 Room Air 05/20/24 16:36 Room Air 05/20/24 16:24 Room Air 05/20/24 16:12 Room Air 05/20/24 16:09 Room Air 05/20/24 16:00 05/20/24 15:54 05/20/24 15:36 Room Air 05/20/24 15:33 Room Air 05/20/24 14:19 Room Air Code Status & VTE Plan VTE Prophylaxis Plan VTE Prophylaxis will be ordered: Yes
[2024-05-20] MEDS: VALSARTAN 80 MG TAB PO SCH (21:21)
[2024-05-20] MEDS: traZODone HCL 50 MG TAB PO SCH (21:22)
[2024-05-20] MEDS: METOPROLOL SUCC 25MG EXT REL TAB PO SCH (21:22)
[2024-05-20] MEDS ORDERED: ACETAMINOPHEN 325 MG TAB PO PRN (21:43)
[2024-05-20] MEDS: DOCUSATE SODIUM 100 MG CAP PO SCH (22:55)
[2024-05-21 00:07] VITALS: O2SAT 96
[2024-05-21] MEDS ORDERED: PANCREAZE (LIPASE 16,800U) CAP PO PRN (06:37)
[2024-05-21 06:49] LABS: BUN Creatinine Ratio 15.2 (10-20); Calcium 9.1 mg/dl (8.6-10.3); Creatinine Clr Calc Pharmacy 47.9 ml/min; Potassium 3.5 mmol/L (3.5-5.1)
[2024-05-21] MEDS: PANCREAZE (LIPASE 16,800U) CAP PO SCH (08:26)
--- NOTE | 2024-05-21 08:28 | Cardiology Consultation ---
Date of Consultation May 21, 2024 Assessment & Plan (1) Takotsubo cardiomyopathy: (2) Heart failure, systolic, with acute decompensation: (3) Prolonged QT interval: (4) Esophagitis: Plan Assessment: 78 year old female presents with dyspnea on exertion in the setting of known Takotsubo cardiomyopathy diagnosed 3 weeks prior and recent acute HF exacerbation. Concerns for possible aspiration which lead to her initial event. Cardiology has been requested for assessment and recommendations regarding her dyspnea. Plan: 1. Takotsubo cardiomyopathy 2. Heart failure, Systolic. -Patient diagnosed mid-April with Takotsubo cardiomyopathy in her home [facility] after a suspected aspiration event. Cardiac cath at that time demonstrated normal coronaries. Patient hospitialized 05/17-05/19 with an acute HF exacerbation while in town visiting friends/family. Discharged on Toprol xl as well as the addition of PO Furosemide and Spironolactone for HF management. Patient was home x1 day and felt intermittent episodes of shortness of breath and lightheadedness prompting her to return to the hospital. -Physical exam, labs and imaging are not suggestive of hypervolemia. Patient has increased anxiety, understandably so about what the outlook will be on this new diagnosis. Reassured patient on recent echo that her LVEF does show improvement and that time along with aggressive medication management will help outline her treatment plan in the future. -Continue to monitor I&Os and daily weights while hospitalized. Will discuss plan with Dr. Recinos, but based on physical exam would likely transition back to PO diuretic regimen. -Patient will need to have a cardiology follow up back home in 3-4 weeks and plans for repeat echocardiogram, limited in 3 months. -Continue Toprol xl, and valsartan. -Would recommend pursuing eval if concerned for aspiration as potential contributing factor for her dyspnea. -Continued management of asthma as per primary team. 3. Prolonged QT interval. -538ms on EKG dated 05/20/24 -Avoid SSRI's, anti-emetics and some antibiotics known to contribute to QT prolongation. 4. Esophagitis: -Continued workup/management per primary team. Case has been discussed with Dr. Recinos. Further recommendations regarding plan of care as per his assessment. I spent a total of 40 minutes on the date of service in preparation, delivery, documentation of the care provided to the patient excluding any time spent in the performance of separately billed services. [facility] [place] Supervising Physician Co-Signing Physician Notes Attending attestation: Case reviewed with the advanced practitioner. I have personally performed a history and physical examination on the patient. I have reviewed the advanced practitioner's documentation on the date of service referenced in note, and I agree with, and take responsibility for the plan of care. Subjective: Patient comfortable during my assessment. Son and his significant other visiting with her from [place]. Patient notes subjective symptoms of dizziness and shortness of breath. She feels her shortness of breath has improved. Exam: CV: regular rhythm, / SM , no edema Data: EKG performed 05/19/2024 1433 revealed sinus rhythm at 67 bpm with diffuse deep T wave inversions, unchanged compared to previous and consistent with her history of stress-induced cardiomyopathy Chest x-ray performed 05/20/2024: Radiology report describes no acute intracardiac process, image reviewed independently, no evidence of volume overload/CHF. Impression/ Plan: Patient with recent diagnosis of Takotsubo syndrome/catecholamine induced cardiomyopathy, mild residual left ventricular systolic dysfunction noted at the time of recent repeat echocardiogram performed 05/18/2024. At this time I think the yield of repeating echocardiogram would be low. Given dizziness, will discontinue spironolactone. Discontinue IV furosemide and transition back to oral furosemide 20 mg daily. Continue metoprolol succinate 25 mg daily although future considerations include reducing this to 12.5 mg daily given subjective dizziness, blood pressure 1 . Continue valsartan 40 mg daily, this is the lowest dose. I spent a total of 20 minutes coordinating, documenting, and providing care for this patient excluding time spent in the performance of separately billed services or time spent by another provider. Lux Recinos DO History of Present Illness Reason for Consultation: CHF Requesting Physician: Yamileth hospitalist Attending Physician: Awilda Belcher MD History of Present Illness HPI: Patient is a 78 year old female with PMHx as noted below that presented to the ER on 05/20/2024 for complaints of shortness of breath with minimal activity, and associated lightheadedness. Of note, patient recently hospitalized at [facility] 05/17-05/19/2024 for acute decompensated systolic heart failure. Echo obtained on 05/18 demonstrates a LVEF of 40-45% with apical ballooning pattern that is consistent with her recent diagnosis of Takotsubo cardiomyopathy. She is here visiting friends and family for the holiday. Plan at time of discharge was to continue Toprol xl, Valsartan, and to add oral Furosemide (20mg daily), and Spironolactone (12.5mg daily), also recommended for aspiration evaluation/precautions. Upon seeing patient today, she is resting comfortably in bed on room air without acute distress. She endorses and dry non-productive cough. No fevers or chills. Denies any URI symptoms. States that she took her medications exactly as prescribed upon discharged, didn't feel like she voided much. Denies any lower extremity edema, denies any significant fluid consumption. She did note that her blood pressures have been "much lower than normal for me" since discharge. Patient expresses concern over constipation, not currently receiving any laxative therapies. Patient's recent cardiac history dates back to 05/06/2024 when she had complained of neck discomfort after eating dinner feeling as though her food did not go down correctly. She developed shortness of breath and chest discomfort later that evening prompting her to present to her local in ER in the [facility]. patient had undergone a cardiac work up including cardiac catheterization which demonstrated normal coronaries (report not available to view), and she was told she had a "stress related heart event". She was discharged on 05/09/24 from [facility] on both a beta hoda and ARB, but not on diuretic therapy at that time. Past Medical and Surgical History Stress mediated cardiomyopathy, Takotsubo cardiomyopathy, April 2024 Hypertension Asthma Chronic pancreatic insufficiency Right breast cancer x 2, status post radiation, lumpectomy x 2 Insomnia, on Lunesta Tonsillectomy Tubal ligation Family History: Positive for CAD and CHF in father. Mother without cardiac issues. Brother with CAD. Social History: Remote tobacco user, in college. Alcohol: 2 healthy glasses of wine per day, and an occasional cocktail. No illegal drug use. Lives in [place], [place]. Retired in 2012, computer company executive, desk job. [employer] graduate. EKG on admission NSR, prolonged QT 538ms, ST/T wave abnormalities in anterolateral leads. unchanged from prior EKGs Recent echo as noted below Chest xray on admission negative High sensitivity troponin 14.7 and 14.9 flat trend Allergies Allergy/AdvReac Type Severity Reaction Status Date / Time animal dander Allergy Severe Causes Unverified 05/17/24 14:33 asthma attack amlodipine Allergy Unknown "Just Unverified 05/17/24 14:33 doesn't agree with me." diltiazem Allergy Unknown "Just Unverified 05/17/24 14:33 doesn't agree with me." fluconazole Allergy Unknown "Just Unverified 05/17/24 14:33 doesn't agree with me." gabapentin Allergy Unknown "Just Unverified 05/17/24 14:33 doesn't agree with me." nebivolol [From Bystolic] Allergy Unknown "Just Unverified 05/17/24 14:33 doesn't agree with me." oxycodone Allergy Unknown "Just Unverified 05/17/24 14:33 doesn't agree with me." tramadol [From Ultram] Allergy Unknown "Just Unverified 05/17/24 14:33 doesn't agree with me." Home Medications Medication Instructions Recorded Confirmed Type ascorbic acid (vitamin C) 1,000 mg 1,000 mg PO QDL ##0 05/15/13 05/20/24 History tablet biotin 1,000 mcg chewable tablet 1,000 mcg PO QDL ##0 05/15/13 05/20/24 History calcium 600 mg (as 1 tab PO QDL ##0 05/15/13 05/20/24 History carbonate)-vitamin D3 10 mcg (400 unit) tablet (Calcium 600 + D(3)) cholecalciferol (vitamin D3) 25 25 mcg PO QDL ##0 05/15/13 05/20/24 History mcg (1,000 unit) tablet (Vitamin D3) coQ10 (ubiquinol) 100 mg capsule 100 mg PO QDL ##0 05/15/13 05/20/24 History cyanocobalamin (vitamin B-12) 1,000 mcg PO QDL ##0 05/15/13 05/20/24 History 1,000 mcg tablet (Vitamin B-12) flaxseed oil 1,000 mg capsule 1,000 mg PO QDL ##0 05/15/13 05/20/24 History eytysffqimf-ril-jplkkzkmt-vitC 3 tabs PO QDL ##0 05/15/13 05/20/24 History capsule (Glucosamine Complex-MSM capsule) ibuprofen 200 mg tablet 400 - 600 mg PO DAILY PRN Pain #0 05/15/13 05/20/24 History tabs multivitamin 1 tab PO QDL ##0 05/15/13 05/20/24 History omega 7-xvl-ctm-fish oil 900 1 cap PO QDL ##0 05/15/13 05/20/24 History mg-1,400 mg capsule,delayed release atorvastatin 10 mg tablet 10 mg PO QAM 05/17/24 05/20/24 History fluticasone furoate 50 1 inh inhalation QAM 05/17/24 05/20/24 History mcg/actuation blister powder for inhalation (Arnuity Ellipta) hydroxyzine HCl 25 mg tablet 25 mg PO BID 05/17/24 05/20/24 History kndasc-lluzrweq-wfnhhwg 1 - 3 cap PO UD 05/17/24 05/20/24 History 40,000-126,000-168,000 unit capsule, delay rel (Zenpep) metoprolol succinate 25 mg 25 mg PO QPM 05/17/24 05/20/24 History tablet,extended release 24 hr montelukast 10 mg tablet 10 mg PO QAM 05/17/24 05/20/24 History sumatriptan succinate 50 mg tablet 50 mg PO DAILY PRN Migraine 05/17/24 05/20/24 History Headache trazodone 50 mg tablet 50 mg PO HS 05/17/24 05/20/24 History valsartan 40 mg tablet 40 mg PO QPM 05/17/24 05/20/24 History furosemide 20 mg tablet 20 mg PO QAM #30 tabs 05/19/24 05/20/24 Rx spironolactone 25 mg tablet 12.5 mg (1/2 x 25 mg) PO DAILY #15 05/19/24 05/20/24 Rx tabs Patient History Social History Smoking Status: Former smoker Second Hand Exposure: No; Do You Dip or Chew Tobacco: No; Hx Alcohol Use: Yes Alcohol type: wine Hx Substance Use: No Preferred Language: Irish Communication Ability: Effective Utilization Supervisor Required: No Beliefs That Will Affect Care: None Current Living Situation: Alone Other Information That Helps Us Care for You: No Feels Safe at Home: Yes Safety Concerns: Feels Safe At This Time Assistive Devices: None Review of Systems Review of Systems: All systems reviewed & are unremarkable except as noted in HPI & below Physical Exam Constitutional: well developed and well nourished; no acute distress and not ill appearing Neck: normal visual inspection and trachea midline Respiratory: normal respiratory effort, lungs clear to auscultation Auscultation: no crackles, no rales, no rhonchi, no wheezes and no pleural rub Cardiovascular: Rate/Rhythm: regular rate and regular rhythm Heart Sounds: normal S1, normal S2 and + murmur (+1/6 systolic ) Vessels: dorsalis pedis pulses present; no JVD Extremities: no edema Skin: no rashes, warm and dry Psychiatric: A+Ox3, euthymic affect Results & Data Vital Signs (Past 12 Hours) Vital Signs Temp Pulse Pulse Pulse Resp BP BP 05/21/24 08:16 36.5 C 63 18 124/72 05/21/24 03:39 36.7 C 56 L 16 104/68 05/20/24 23:23 36.6 C 60 16 110/75 05/20/24 21:56 71 05/20/24 21:35 05/20/24 21:35 37.6 C H 73 18 120/75 05/20/24 21:35 37.6 C H 73 18 120/75 05/20/24 20:54 69 12 144/83 H Pulse Ox O2 Del Method 05/21/24 08:16 96 Room Air 05/21/24 03:39 96 Room Air 05/20/24 23:23 96 Room Air 05/20/24 21:56 05/20/24 21:35 Room Air 05/20/24 21:35 98 Room Air 05/20/24 21:35 98 Room Air 05/20/24 20:54 97 Room Air Laboratory Results Cardiac Enzymes 05/20/24 05/20/24 05/20/24 Range/Units 14:45 15:14 17:29 AST 21 (13-39) U/L Troponin I High Sens 14.7 H 14.9 H (0-14) pg/ml B-Natriuretic Peptide 338 H (0-100) pg/ml Coagulation 05/20/24 05/20/24 Range/Units 14:45 15:14 PT 10.5 (9.0-12.0) Seconds APTT 27 (21-31) Seconds B-Natriuretic Peptide 338 H (0-100) pg/ml CBC 05/20/24 Range/Units 14:45 WBC 6.34 (4.8-10.8) K/ul RBC 4.99 (4.20-5.40) M/uL Hgb 15.5 (12.0-16.0) g/dl Hct 44.0 (37.0-47.0) % Plt Count 232 (130-400) K/uL Neut # (Auto) 4.90 (1.40-6.50) K/uL Lymph # (Auto) 0.87 L (1.20-3.40) K/uL [place] # (Auto) 0.43 (0.11-0.59) K/uL Eos # (Auto) 0.05 (0.00-0.50) K/uL Baso # (Auto) 0.04 (0.00-0.20) K/uL Comprehensive Metabolic Panel 05/20/24 05/21/24 Range/Units 14:45 05:37 Sodium 138 140 (136-145) mmol/L Potassium 3.7 3.5 (3.5-5.1) mmol/L Chloride 101 103 (98-107) mmol/L Carbon Dioxide 27 29 (21-32) mmol/L BUN 14 15 (6-23) mg/dl Creatinine 1.00 0.99 (0.6-1.2) mg/dl Glucose 91 90 (70-99(Fasting)) mg/dl Calcium 9.8 9.1 (8.6-10.3) mg/dl AST 21 (13-39) U/L ALT 15 (7-52) U/L Alkaline Phosphatase 54 (34-104) U/L Total Protein 8.1 (6.0-8.3) gm/dl Albumin 4.8 (3.4-5.0) gm/dl Intake and Output 05/20/24 05/21/24 05/21/24 22:59 06:59 14:59 Intake Total 120 / 270 150 / 270 Output Total 300 / 300 Balance -180 / -30 150 / -30 Intake: Oral 120 / 270 150 / 270 Output: Urine 300 / 300 Other: # Unmeasured Voids 1 Weight 71.214 kg 71.3 kg Weight Measurement Method Standing Scale Standing Scale Diagnostic Findings Echocardiogram 05/18/2024: Moderate concentric LVH localized apical hypokinesis wit mild apical expansion, and normal contractility of the basilar wall. Pattern consistent with apical ballooning cardiomyopathy history LVEF 40-45% Diastolic dysfunction, Grade II Left atrium mildly dilated Moderate aortic valve sclerosis without significant stenosis Trace AI Mild to moderate MR No suggestion of pulmonary HTN normal IVC diameter suggest normal CVP
--- NOTE | 2024-05-21 08:59 | Electrocardiogram Report ---
Test Reason : Blood Pressure : */* mmHG Vent. Rate : 67 BPM Atrial Rate : 67 BPM P-R Int : 184 ms QRS Dur : 98 ms QT Int : 510 ms P-R-T Axes : 33 -55 184 degrees QTcB Int : 538 ms Normal sinus rhythm Left axis deviation Prolonged QT Abnormal ECG When compared with ECG of 17-May-2024 20:04, T wave inversion less evident in Inferior leads Confirmed by Martine Stevens (Lola) on 05/21/2024 8:58:36 AM Referred By: REFERRED SELF Confirmed By: Martine Stevens
[2024-05-21] MEDS: ATORVASTATIN 10 MG TAB PO SCH (10:13)
[2024-05-21] MEDS: FLUTICASONE FUROATE 100MCG 14 PUFFS/INHALER INH SCH (10:13)
[2024-05-21] MEDS: MONTELUKAST SODIUM 10 MG TABLET PO SCH (10:14)
[2024-05-21] MEDS: PANTOprazole 40 MG TAB PO SCH (10:14)
[2024-05-21] MEDS: FUROSEMIDE INJ 20 MG/2 ML VIAL IV SCH (10:14)
[2024-05-21] MEDS ORDERED: NON-FORMULARY MEDICATION (Coq10 (Ubiquinol) 100 mg Capsule) PO SCH (11:30)
[2024-05-21] MEDS ORDERED: NON-FORMULARY MEDICATION (Biotin 1,000 mcg Tablet,Chewable) PO SCH (11:30)
[2024-05-21] MEDS ORDERED: NON-FORMULARY MEDICATION (Flaxseed Oil 1,000 mg Capsule) PO SCH (11:30)
[2024-05-21] MEDS ORDERED: SPIRONOLACTONE 12.5 MG TAB PO SCH (11:30)
[2024-05-21 11:52] VITALS: RESP 16; TEMP 98.2
[2024-05-21] MEDS: CHOLECALCIFEROL 25 MCG (1000 UNITS) TAB PO SCH (12:21)
[2024-05-21] MEDS: CALCIUM 600MG + VIT D 400 IU TAB PO SCH (12:21)
[2024-05-21] MEDS: CYANOCOBALAMIN (B-12) 500 MCG TABLET PO SCH (12:21)
[2024-05-21] MEDS: OMEGA-3 (PURIFIED FISH OIL) 1 GM CAP PO SCH (12:21)
[2024-05-21] MEDS: ASCORBIC ACID 500 MG TAB PO SCH (12:21)
[2024-05-21] MEDS: MULTIVITAMIN TAB PO SCH (12:21)
--- NOTE | 2024-05-21 15:46 | Discharge Summary ---
Discharge Summary Date of Service May 21, 2024 Principal Dx & Hospital Course #1 = Principal Diagnosis (1) Heart failure, systolic, with acute decompensation: (2) Takotsubo cardiomyopathy: (3) Acute dyspnea: Plan Patient is a 78 year old female with recent diagnosis of Takatsubo Cardiomyopathy with NSTEMI, history of Asthma, Pancreatic insufficiency, Breast Cancer s/p radiation, other problems noted below presenting with shortness of breath x 3-4 days. Recently discharged from [facility] on May 09, 2024 after presenting with chest tightness and was diagnosed with Takatsubo Cardiomyopathy and NSTEMI. She was given Lasix and was discharged on Metoprolol XL and Valsartan. Cardiac Cath: negative for coronary artery disease as per patient Acute exacerbation of CHF, Systolic, Diastolic Type TAKOTSUBO CARDIOMYOPATHY, RECENT DIAGNOSIS Patient presenting after discharge 2 days prior, noting persistent shortness of breath with dizziness or "loopiness" Was discharged from this hospital with oral Lasix 20 mg daily as well as spironolactone 12.5 mg daily in addition to her home valsartan 40mg, metoprolol succinate 25mg daily Repeat Chest XRAY noting no acute cardiopulmonary disease Improvement in BNP from 1325 during the first admission to 338 currently Treated with IV Lasix 20 mg daily Cardiology consulted once more, recommended/stated the following on day of disc harge: "Patient with recent diagnosis of Takotsubo syndrome/catecholamine induced cardiomyopathy, mild residual left ventricular systolic dysfunction noted at the time of recent repeat echocardiogram performed 05/18/2024. At this time I think the yield of repeating echocardiogram would be low. Given dizziness, will discontinue spironolactone. Discontinue IV furosemide and transition back to oral furosemide 20 mg daily. Continue metoprolol succinate 25 mg daily although future considerations include reducing this to 12.5 mg daily given subjective dizziness, blood pressure 102/65. Continue valsartan 40 mg daily, this is the lowest dose." On the day of discharge, Patient was advised to transition back to oral Lasix 20 mg and to continue with home valsartan 40 mg and metoprolol succinate 25 mg daily. She was advised to discontinue the spironolactone 12.5 mg previously prescribed. She was in agreement with that plan. Please ensure close cardiology follow-up after discharge. PROLONGED QTC QTc 538 on 05/20 Pt was on hydroxyzine scheduled for itching, she notes she has since discontinued that herself since the last discharge States she is on Dupixent prescribed by her backup administrative coordinator, and can wean off the hydroxyzine PCP follow-up for continued monitoring Hydroxyzine discontinued on discharge Possible Esophagitis Noted on CTA chest Pt notes a hx of prior EGDs and repaired hiatal hernia Notes never took a ppi Follows with GI in [place] and would like to discuss the findings and follow up with her clay artist Pt agreeable to starting pantoprazole 40mg daily until followup with her GI in [place] Please ensure close GI followup after discharge ASTHMA not in exacerbation continue Arnuity Ellipta, Montelukast PANCREATIC INSUFFICIENCY continue Zenpep with meals MIGRAINE continue PRN Sumatriptan, Celebrex ALCOHOL USE patient reports having 2-3 drinks of wine or cocktail/day HISTORY OF BREAST CANCER S/P RADIATION 2017 Notes For Next Care Provider Please ensure close Cardiology followup after discharge Pt with prolonged qtc-hydroxyzine discontinued. PCP followup. GI followup for noted possible esophagitis on imaging Medication Changes From Visit START: pantoprazole 40mg daily for esophagitis STOP: Hydroxyzine 25mg BID Spironolactone 12.5mg daily CONTINUE: po lasix 20mg daily Valsartan 40mg daily Metoprolol succinate 25mg daily Admission HPI Per Admitting Provider Patient is a 78 year old female with recent diagnosis of Takotsubo Cardiomyopathy with NSTEMI, history of Asthma, Pancreatic insufficiency, Breast Cancer s/p radiation, other problems noted below presenting Again to the ER with shortness of breath. Patient was discharged [facility] from [facility] after being treated for CHF exacerbation secondary to Takotsubo, grade 2 diastolic dysfunction. She was discharged on Lasix 20 mg p.o. daily and spironolactone 12.5 mg p.o. daily As per patient she started to have shortness of breath with minimal exertion again today associated with lightheadedness. No chest pain, palpitations, dizziness. CXR: No acute cardiopulmonary disease. BNP 300s Patient given Lasix 40mg IV, Protonix, Maalox at the ER. Admission Exam Per Admitting Provider General- oriented x 3, not in distress, speaks in sentences with no effort or accessory muscle use Head- atraumatic Eyes- PERRL, EOMI, anicteric ENT- oropharynx clear Neck- supple, no JVD, no adenopathy, no thyromegaly; carotids +2/2, no bruits appreciated Lungs- mild rales at the bases Heart- normal rate, regular rhythm; no murmur, no gallop, no rub appreciated Abdomen- normal bowel sounds, nondistended, soft, nontender, no masses or hepatosplenomegaly Extremities-mild pretibial edema, no calf tenderness; peripheral pulses intact Neuro- alert, oriented x 3; CN 2-12 grossly intact; motor 5/5 bilaterally;sensation 100% on all extremities; no other gross focal neurologic deficits Skin- warm & dry Discharge Exam General: Alert, oriented. No acute distress Skin: No noted rashes or bruises Psych: Appropriate mood and affect HEENT: NC/AT CV: RRR Resp: Breath sounds clear bilaterally, no increased effort of breathing Abdomen:Soft, nontender Extremities: trace edema in lower extremities bilaterally. Updated Medication List Medication Instructions Recorded Confirmed Type ascorbic acid (vitamin C) 1,000 mg 1,000 mg PO QDL ##0 05/15/13 05/20/24 History tablet biotin 1,000 mcg chewable tablet 1,000 mcg PO QDL ##0 05/15/13 05/20/24 History calcium 600 mg (as 1 tab PO QDL ##0 05/15/13 05/20/24 History carbonate)-vitamin D3 10 mcg (400 unit) tablet (Calcium 600 + D(3)) cholecalciferol (vitamin D3) 25 25 mcg PO QDL ##0 05/15/13 05/20/24 History mcg (1,000 unit) tablet (Vitamin D3) coQ10 (ubiquinol) 100 mg capsule 100 mg PO QDL ##0 05/15/13 05/20/24 History cyanocobalamin (vitamin B-12) 1,000 mcg PO QDL ##0 05/15/13 05/20/24 History 1,000 mcg tablet (Vitamin B-12) flaxseed oil 1,000 mg capsule 1,000 mg PO QDL ##0 05/15/13 05/20/24 History wosodgalfln-mmg-xkhzhzfqo-vitC 3 tabs PO QDL ##0 05/15/13 05/20/24 History capsule (Glucosamine Complex-MSM capsule) ibuprofen 200 mg tablet 400 - 600 mg PO DAILY PRN Pain #0 05/15/13 05/20/24 History tabs multivitamin 1 tab PO QDL ##0 05/15/13 05/20/24 History omega 3-clt-bqi-fish oil 900 1 cap PO QDL ##0 05/15/13 05/20/24 History mg-1,400 mg capsule,delayed release atorvastatin 10 mg tablet 10 mg PO QAM 05/17/24 05/20/24 History fluticasone furoate 50 1 inh inhalation QAM 05/17/24 05/20/24 History mcg/actuation blister powder for inhalation (Arnuity Ellipta) qcvxiz-nnvgnkjg-cnnlsnz 1 - 3 cap PO UD 05/17/24 05/20/24 History 40,000-126,000-168,000 unit capsule, delay rel (Zenpep) metoprolol succinate 25 mg 25 mg PO QPM 05/17/24 05/20/24 History tablet,extended release 24 hr montelukast 10 mg tablet 10 mg PO QAM 05/17/24 05/20/24 History sumatriptan succinate 50 mg tablet 50 mg PO DAILY PRN Migraine 05/17/24 05/20/24 History Headache trazodone 50 mg tablet 50 mg PO HS 05/17/24 05/20/24 History valsartan 40 mg tablet 40 mg PO QPM 05/17/24 05/20/24 History furosemide 20 mg tablet 20 mg PO QAM #30 tabs 05/19/24 05/20/24 Rx pantoprazole 40 mg tablet,delayed 40 mg PO DAILY #30 tabs 05/21/24 Rx release Hospital Stay Data Consultations 05/20/24 19:00 ED Decision to Admit Stat 05/20/24 21:43 Consult Cardiology Routine Diagnostic Imagining Performed Chest X-Ray 05/20/24 14:22 EXAM: Radiograph of the Chest 1 View INDICATION: Chest pain. TECHNIQUE: Frontal view of the chest. COMPARISON: 05/17/2024 FINDINGS: Lungs and pleural spaces: No consolidation or pulmonary edema. No pleural effusion or pneumothorax. Heart: Prominent cardiac shadow accentuated by technique unchanged. Mediastinum: Normal contour. Bones/joints: No fracture, erosion or dislocation. Soft tissues: Right axillary surgical clips noted. Vasculature: Stable ectatic aorta. Upper abdomen: No abnormality noted. IMPRESSION: No acute cardiopulmonary disease. ACT 112: Negative or not required by law. Electronically signed by Dee Montaño 05-20-2024 3:13 PM Discharge Instructions Given to Patient (Per Discharging Provider) Angel Rocha were admitted and evaluated further for your shortness of breath and dizziness. You were seen by the measurement technician who recommends that we discontinue the spironolactone you were previously prescribed at your last visit here. Please stop taking that medication at home. They advised that you can continue with your oral Lasix 20 mg daily as well as your home valsartan 40 mg daily and metoprolol succinate 25 mg daily. Please start taking the oral lasix again tomorrow. You indicated that you have since stopped taking your home hydroxyzine. We recommend that you stop taking that medication as well. We prescribed you the medication pantoprazole 40 mg daily to help with your noted esophagitis until you can follow-up with your clay artist in [place]. Please keep close follow up with your primary care provider, Gate Attendant and clay artist after discharge. Please do not hesitate to come back to the emergency room if your symptoms worsen or return. It was a pleasure taking care of you while you were here. Total Time Total Time Spent Total Time Spent (In Minutes): 65
--- NOTE | 2024-05-21 16:11 | Communication Note ---
Date of Service: May 21, 2024 By CMS guidelines, a determination that the admission or continued stay is not medically necessary has been made by a member of the UR committee and a physician for this hospital stay, therefore a Code 44 will be completed and the Inpatient admission will be changed to outpatient.
[2024-05-21 16:52] VITALS: BP 104/68; PULSE 73
--- NOTE | 2024-05-22 08:38 | Communication Note ---
Date of Service: May 22, 2024 By CMS guidelines, a determination that the admission or continued stay is not medically necessary has been made by a member of the UR committee and abimbola beard for this hospital stay, therefore a Code 44 will be completed and the Inpatient admission will be changed to outpatient.
[2024-05-22] MEDS ORDERED: FUROSEMIDE 20 MG TAB PO SCH (09:00)
--- NOTE | 2024-05-22 20:06 | Electrocardiogram Report ---
Test Reason : Blood Pressure : */* mmHG Vent. Rate : 76 BPM Atrial Rate : 76 BPM P-R Int : 178 ms QRS Dur : 88 ms QT Int : 448 ms P-R-T Axes : 41 -81 231 degrees QTcB Int : 504 ms Normal sinus rhythm Left axis deviation Anterior infarct , age undetermined Prolonged QT Abnormal ECG When compared with ECG of 19-May-2024 14:33, Anterior infarct is now Present T wave inversion more evident in Inferior leads T wave inversion less evident in Anterior leads Confirmed by Tyson Chavez ([id number]) on 05/22/2024 8:06:17 PM Referred By: REFERRED SELF Confirmed By: Tyson Chavez
== END 2024-05-21 17:36 | disposition home or self-care (01) ==
LOC: ED 13:47 → SUATTDRO 19:11 → INTOOBSV 19:11 → 4W 19:11